=== PATIENT | female | born 1935 | race Caucasian/White ===

== ENCOUNTER 2016-06-11 20:34 | Inpatient (IN) | payer OTHER, MEDICARE ==
[~2016-06-11] VITALS: Ht 167.6 cm; Wt 73.1 kg
[2016-06-11 21:00] LABS: ABSOLUTE BASOPHIL COUNT 0 /CUMM (0.0-0.2); ABSOLUTE EOSINOPHIL COUNT 0 /CUMM (0.0-0.7); ABSOLUTE GRANULOCYTE CT 12.3 /CUMM (1.4-6.5); ABSOLUTE LYMPH COUNT 5.6 /CUMM (1.2-3.4); ABSOLUTE MONOCYTE COUNT 0.7 /CUMM (0.10-0.60); BASOPHIL % 0.2 % (0.0-2.0); EOSINOPHIL % 0.2 % (0-5); GRANULOCYTE % 65.7 % (42.2-75.2); HEMATOCRIT 28.5 % (37-47); MEAN CORPUSCULAR HGB 27.5 PG (27.0-31.0); MEAN CORPUSCULAR HGB CONC 31.1 G/DL (33.0-37.0); MEAN CORPUSCULAR VOLUME 88.5 FL (81.0-99.0); MEAN PLATELET VOLUME 9.5 FL (7.4-10.4); PLATELET COUNT 255 /CUMM (130-400); RBC DISTRIBUTION WIDTH 15.4 % (11.5-14.5); RED BLOOD CELL CT 3.22 /CUMM (4.20-5.40); WHITE BLOOD CELL COUNT 18.7 /CUMM (4.8-10.8)
--- NOTE | 2016-06-11 21:39 | ED CRITICAL CARE ---
See Addendum History of Present Illness General Chief Complaint: Cardiopulmonary Resuscitation Stated Complaint: CPR Source: family, EMS Exam Limitations: unable to give history, clinical condition Vital Signs & Intake/Output Vital Signs & Intake/Output Vital Signs Date Time Temp Pulse Resp B/P Pulse O2 O2 Flow FiO2 Ox Delivery Rate 06/13 1921 65 06/13 1625 55 06/13 1617 98.4 81 16 100/44 91 Ventilator 55% 06/13 1600 91 Ventilator 55% 06/13 1435 50 06/13 1200 92 Ventilator 50% 06/13 1115 50 ED Intake and Output 06/14 0000 06/13 1200 Intake Total 3680 2269 Output Total 172 260 Balance 3508 2008 Intake, IV 3620 2269 Intake, Other 60 Number 0 0 Bowel Movements Output, 50 75 Gastric Drainage Output, Urine 122 185 Patient 161 lb Weight Allergies Coded Allergies: No Known Allergies (06/12/16) Reconcile Medications Amlodipine Besylate 10 MG TABLET 10 MG PO DAILY HTN (Reported) Calcitriol 0.25 MCG CAPSULE 0.25 MCG PO DAILY BONE HEALTH (Reported) Carvedilol 25 MG TABLET 25 MG PO BID HTN (Reported) Colchicine 0.6 MG TABLET 0.6 MG PO DAILY GOUT (Reported) Duloxetine HCl 30 MG CAPSULE.DR 30 MG PO DAILY MENTAL HEALTH (Reported) Hydralazine HCl 50 MG TABLET 50 MG PO BID HTN (Reported) Irbesartan/Hydrochlorothiazide (Irbesartan-Hctz 300-12.5 MG Tb) 300 MG-12.5 MG TABLET 12.5 MG PO DAILY HTN (Reported) Lovastatin 40 MG TABLET 40 MG PO DAILY CHOLESTEROL (Reported) Pregabalin (Lyrica) 25 MG CAPSULE 25 MG PO DAILY DM (Reported) Triage Note: PT BIBA S/P CARDIAC ARREST. CPR INITIATED BY EMS, PT INTUBATED 7.5 ET TUBE, BVM MAINTAINED. #20 IN [facility], 5 EPI'S GIVEN BY EMS. PER EMS PT WAS FEELING WEAK AND GENERALIZED BODY PAIN. PT WAS AT FAMILY'S HOUSE, WENT TO GO HAVE A BM AND WAS FOUND UNRESPONSIVE BY FAMILY. PER EMS PT REMAINED IN [place] UPON ARRIVAL TO ED. BG BY EMS = 561. Triage Nurses Notes Reviewed? yes HPI: Patient presents in full CPR status post endotracheal intubation. According to EMS the patient was sitting on the toilet when she became unresponsive. She had been feeling well during the day. When paramedics arrived she was in cardiac arrest and CPR was initiated followed by endotracheal intubation. Patient received 5 AMPS of epinephrine intravenously and chest compressions were performed with The mechanical CPR machine. Past History Travel History Traveled to [place] past 21 day No Medical History Any Pertinent Medical History? see below for history (pt unable to provide) Surgical History Surgical History: unobtainable Family History Hx Contributory? No (unobtainable) Review of Systems Review of Systems Constitutional: Reports: see HPI. Comments pt unable to provide ros Physical Exam Physical Exam General Appearance: see below Comments: Gen.: Well-nourished, well-developed, intubated Head: Normocephalic, atraumatic. Eyes: Pupils fixed and dilated Ears: Normal inspection bilaterally Nose: Normal inspection Throat/mouth : Moist mucosa Neck: No apparent trauma Heart: Unable to auscultate heart tones Lungs: Clear to auscultation bilaterally with normal air entry with mechanical ventilations Chest: CPR machine in place, chest compressions in progress Abdomen: Soft, nondistended Extremities: No spontaneous movements, no palpable pulses except with chest compressions Neurologic: Unable to assess Skin: Cool Psychiatric: Unable to assess Core Measures ACS in differential dx? Yes CVA/TIA Diagnosis: No Severe Sepsis Present: No Septic Shock Present: No Progress Differential Diagnoses I considered the following diagnoses in my evaluation of the patient: Myocardial infarction, dysrhythmia, metabolic derangement, respiratory arrest Plan of Care: Orders Procedure Date/time Status EXTUBATE 06/13 2100 Complete VENTILATOR PARAMETERS 06/13 1934 Complete VENTILATOR PARAMETERS 06/13 1650 Complete VENTILATOR PARAMETERS 06/13 1450 Complete Kirby, Insertion/Removal/Asses 06/13 1058 Complete VENTILATOR PARAMETERS 06/13 0845 Complete PARTIAL THROMBOPLASTIN TIME 06/13 0832 Complete PROTHROMBIN TIME 06/13 0832 Complete FIBRIN SPLIT PRODUCTS 06/13 0832 Complete FIBRINOGEN LEVEL 06/13 0832 Complete D-DIMER 06/13 0832 Complete OXYGEN SETUP CHG 06/12 UNK Complete OXYGEN 06/12 UNK Complete OXYGEN TRANSPORT 06/12 UNK Complete CONTINUOUS VENTILATOR 06/12 UNK Complete AIRWAY MANAGEMENT EXTEND CARE 06/12 UNK Complete Laboratory Tests 06/14/16 0500: Sodium Cancelled, Potassium Cancelled, Chloride Cancelled, Carbon Dioxide Cancelled, Anion Gap Cancelled, BUN Cancelled, Creatinine Cancelled, Glucose Cancelled, Calcium Cancelled, Phosphorus Cancelled, Magnesium Cancelled, Total Bilirubin Cancelled, AST Cancelled, ALT Cancelled, Albumin Cancelled, CBC w Diff Cancelled, WBC Cancelled, RBC Cancelled, Hgb Cancelled, Hct Cancelled, MCV Cancelled, MCH Cancelled, RDW Cancelled, Plt Count Cancelled, MPV Cancelled, PUBS MCHC Cancelled 06/13/16 0850: PT 14.8 H, INR 1.41 H, APTT 38 H, Fibrinogen Activity 507 H, Fibrin Degrad Products > 40 ug/ml H, D-Dimer > 5250 H Diagnostic Imaging: Discussed w/RAD: Radiology Read. CXR Impression: ett tube at arron Initial ED EKG: unclear rhythm, profound bradycardia with a heart rate in the 20s. Likely high AV mike rhythm. No peaked T waves. Comments: 06/11/2016 9:43:36 PM patient's case discussed with both Dr. Coy and Dr. BURKETT. She is now tenuously stable on a dopamine drip and a transcutaneous pacer. She has a 99% oxygen saturation on room air and a paced rhythm with easily palpable femoral pulses. Her extremities are warm and appear to be well perfused at this time. However she still was no spontaneous respirations spontaneous movements or corneal reflexes. We will initiate cooling measures. Given her elevated potassium, she is being given insulin and calcium gluconate. Family has been updated and are at the bedside. Patient's prognosis is grave at this point. 06/11/2016 9:48:02 PM according to the radiologist the patient's endotracheal tube is at the marli. Recommends withdrawal of the tube 2-3 cm. 06/11/2016 10:32:58 PM hospitalist at the bedside. We have taken the patient off the pacer with no deterioration in steady and easily palpable femoral pulses. Departure Departure Disposition: STILL A PATIENT Condition: Critical Clinical Impression Primary Impression: Cardiac arrest Secondary Impressions: Acute kidney injury Anemia Qualifiers: Anemia type: unspecified type Qualified Code: D64.9 - Anemia, unspecified Bradycardia Encounter for central line placement Endotracheally intubated Hyperkalemia Hypotension Qualifiers: Hypotension type: other hypotension type Qualified Code: I95.89 - Other hypotension Leukocytosis Qualifiers: Leukocytosis type: unspecified Qualified Code: D72.829 - Elevated white blood cell count, unspecified Respiratory arrest Referrals: ADI GERARDO MD (PCP/Family) Departure Forms: General Discharge Information Admission Note Spoke With: KIT BURKETT MD Documentation of Exam: Documentation of any treatments & extenuating circumstances including Concerns Regarding Discharge (functional status, medication knowledge or non-compliance, living conditions, etc.) that warrant an admission rather than observation: Patient is critically ill requiring mechanical ventilation and IV dopamine and transcutaneous pacing to maintain her cardiovascular stability. She is also hyperkalemic and acidotic and will require monitoring of her heart rhythm, repeated chemistries to monitor acidosis and potassium level and cardiology consultation. Cooling measures should be initiated to preserve cerebral function. This patient is critically ill and requires ICU level care. Her prognosis is grave. Critical Care Note Critical Care Note Critical Care Time: 75-104 min Critical Care Time: 75-104 min
--- NOTE | 2016-06-11 21:51 | RADIOLOGY REPORT ---
EXAMINATION: XR PORTABLE CHEST CLINICAL INFORMATION: CHF. Effusion. CMG. Endotracheal tube placement. Cardiac arrest. COMPARISON: None TECHNIQUE: AP supine portable view of the chest was obtained. 9:25 PM FINDINGS: Endotracheal tube tip is just above the marli. Catheter could be pulled back about 4 cm. There is central pulmonary vascular congestion with bilateral perihilar airspace disease of pulmonary edema. Heart size is enlarged. No pneumothorax. IMPRESSION: Endotracheal tube tip just above the marli. Catheter could be pulled back about 4 cm. Pulmonary edema. This critical result was discussed with Dr. Monet on 06/11/2016, 9:50 PM and it was ascertained that the content and urgency of the report was understood at the time of direct communication.
--- NOTE | 2016-06-11 23:08 | History & Physical ---
THEA ZUNIGA 06/11/16 2307: General Information and HPI MD Statement: I have seen and personally examined JACQUELINE KENNEDY and documented this H&P. The patient is a 81 year old F who presented with a patient stated chief complaint of [cardiac arrest]. Source of Information: family, EMS Exam Limitations: unable to give history History of Present Illness: This is a 81-year-old woman with past medical history of diabetes mellitus, hyperlipidemia, hypertension, chronic kidney disease, gout, neuropathy, questionable congestive heart failure. Presented to the emergency department status post cardiac arrest at home tonight. According to her daughter she stated that her mother report that she had postnasal drip and she feels tired and complaining of wheezing for the past couple of days. She stated that today she started to complain of chest tightness that is associated with shortness of breath and cough with small amount of phlegm and she felt feverish her temperature at home was 99.0. Also she report that her mother was complaining cough not eating right and the last hour status post the event. The daughter stated that her last Accu-Chek today was 230. The daughter stated that she contact the mass prior to the cardiac arrest because she suspected her mother had the pneumonia as she was complaining cough feeling tired and had difficulty breathing with wheezing, she stated as her mother went to the bathroom for change prior to arrival of EMS her mother was fully responsive, and suddenly she become unresponsive and her skin color to them to be riojas in color she stated that during this time the EMS was in the driveway and directly CPR was initiated followed by endotracheal intubation, according to the EMS 5 g of epinephrine was given. also she report that her mother vomited and the EMS done suction for her. ((PER EMS PT REMAINED IN [place] UPON ARRIVAL TO ED)). Patient arrived to the ED around 8:30 PM. In the ED patient received additional 6 amps of epinephrine, with 2 L of normal saline bolus, patient was intubated and was started on dopamine and was placed on pacing due to low blood pressure and bradycardia,Levophed double concentration was started, also she received 50 mEq of sodium bicarbonate. Initial labs showed hyperkalemia of 7.7 with low bicarbonate of 9 with elevated creatinine with BUN 2.6/45 respectively patient received calcium gluconate, 10 units of regular insulin. Initial CBC showed leukocytosis without band. Patient blood pressure and heart rate improved and the pacer was taken off. repated EKG showed HR 80, MI 176, [id number], LBBB with LVH. Repeated labs showed potassium of 6.5 another round of insulin and calcium gluconate with D5 normal saline was given. Folye catheter and right femoral central line was placed in the ED. Allergies/Medications Home Med list Amlodipine Besylate 10 MG TABLET 10 MG PO DAILY HTN (Reported) Calcitriol 0.25 MCG CAPSULE 0.25 MCG PO DAILY BONE HEALTH (Reported) Carvedilol 25 MG TABLET 25 MG PO BID HTN (Reported) Colchicine 0.6 MG TABLET 0.6 MG PO DAILY GOUT (Reported) Duloxetine HCl 30 MG CAPSULE.DR 30 MG PO DAILY MENTAL HEALTH (Reported) Hydralazine HCl 50 MG TABLET 50 MG PO BID HTN (Reported) Irbesartan/Hydrochlorothiazide (Irbesartan-Hctz 300-12.5 MG Tb) 300 MG-12.5 MG TABLET 12.5 MG PO DAILY HTN (Reported) Lovastatin 40 MG TABLET 40 MG PO DAILY CHOLESTEROL (Reported) Pregabalin (Lyrica) 25 MG CAPSULE 25 MG PO DAILY DM (Reported) Past History Travel History Traveled to [place] past 21 day No Medical History Cardiovascular: hypertension, hyperlipidemia Renal: chronic kidney disease Musculoskeletal: gout Endocrine: diabetes Surgical History Surgical History: unobtainable Past Family/Social History Psychosocial History Smoking Status: Never Smoked ETOH Use: denies use Illicit Drug Use: denies illicit drug use Functional Ability ADLs Independent: dressing, eating, toileting, bathing. Ambulation: independent IADLs Independent: shopping, housework, finances, food prep, telephone, transportation , medication admin. Review of Systems Review of Systems Constitutional: Reports: see HPI. Cardiovascular: Reports: see HPI. Respiratory: Reports: see HPI. GI: Reports: see HPI. Genitourinary: Reports: see HPI. Neurological/Psychological: Reports: see HPI. Exam & Diagnostic Data Last 24 Hrs of Vital Signs/I&O Vital Signs Date Time Temp Pulse Resp B/P Pulse O2 O2 Flow FiO2 Ox Delivery Rate 06/11 2336 88 20 78/40 98 Ventilator 100% 06/11 2329 100 06/11 2252 52/38 06/118 58/30 06/110 78 20 5830 03/14 2218 Ventilator 06/11 2213 95.0 80 98 Ventilator 06/11 2211 78 58/30 06/11 2200 54 20 38/0 99 Ventilator 06/11 2135 60 20 72/38 100 Ventilator 06/114 82/46 06/11 2101 100 06/11 2100 56/42 06/11 2049 50 20 74/40 06/118 72/40 06/11 2038 92/40 Intake & Output 06/12 0800 06/12 0000 06/11 1600 Intake Total 2000 Output Total Balance 2000 Intake, IV 2000 Patient 140 lb Weight Physical Exam General Appearance intubated HEENT fixed and dilated pupils bilateral Neck intubated Cardiovascular Regular Rate, Normal S1, Normal S2 Lungs intubated, findings crackles, wheezing Abdomen Soft, No Masses, distended Extremities trace bilateral edema Last 24 Hrs of Labs/Elliott: Laboratory Tests 06/11/162302: Anion Gap 15, Estimated GFR 19 L, Glucose 178 H, Calcium 8.6, Phosphorus 8.7 H, Magnesium 2.5 H, Total Bilirubin 0.6, AST 235 H, ALT 141 H, Albumin 2.8 L , PT 11.2, INR 1.07, APTT 33 06/11/162204: pH 7.23 *L, pCO2 26 L, pO2 99, HCO3 11 L, ABG O2 Sat (Measured) 96.0, P-50 ( Temp Corrected) N, Carboxyhemoglobin 0.4 L, O2 Concentration % 100%, Respiration Rate 20, O2 Delivery Method VENT, Vent Mode AC, Expiratory Pressure 5, Tidal Volume 500, Pressure Support 0, Phlebotomy Draw Site RIGHT BRACHIAL 06/11/162051: Anion Gap 21 H, Estimated GFR 18 L, BUN/Creatinine Ratio 17.3, Glucose 312 H, Calcium 9.2, Magnesium 2.8 H, Troponin I 0.04, CBC w Diff MAN DIFF ORDERED, RBC 3.22 L, MCV 88.5, MCH 27.5, RDW 15.4 H, MPV 9.5, Gran % 65.7, Lymphocytes % 30.1, Monocytes % 3.8, Eosinophils % 0.2, Basophils % 0.2, Absolute Granulocytes 12.3 H, Segmented Neutrophils 51, Band Neutrophils 1, Absolute Lymphocytes 5.6 H, Lymphocytes 44, Monocytes 4, Absolute Monocytes 0.7 H, Absolute Eosinophils 0, Absolute Basophils 0, Platelet Estimate ADEQUATE, Normocytic RBCs VERIFIED, Normochromic RBCs VERIFIED, PUBS MCHC 31.1 L Microbiology 06/11 2348 UPPER RESP: Surveillance Culture - ORD 06/11 2348 GI: Surveillance Culture - ORD 06/11 2252 URINE ROUT: Urine Culture - ORD 06/11 2252 BLOOD: Blood Culture - COLB 06/11 2252 BLOOD: Blood Culture - COLB 06/11 2122 STOOL: Stool Culture - ORD Diagnostic Data EKG Results see HPI CXR Results EXAM TYPE: RAD - XRY-PORTABLE CHEST XRAY EXAMINATION: XR PORTABLE CHEST CLINICAL INFORMATION: CHF. Effusion. CMG. Endotracheal tube placement. Cardiac arrest. COMPARISON: None TECHNIQUE: AP supine portable view of the chest was obtained. 9:25 PM FINDINGS: Endotracheal tube tip is just above the marli. Catheter could be pulled back about 4 cm. There is central pulmonary vascular congestion with bilateral perihilar airspace disease of pulmonary edema. Heart size is enlarged. No pneumothorax. IMPRESSION: Endotracheal tube tip just above the marli. Catheter could be pulled back about 4 cm. Pulmonary edema. Assessment/Plan Assessment: This is a 81-year-old woman with past medical history of diabetes mellitus, hyperlipidemia, hypertension, chronic kidney disease, gout, neuropathy, questionable congestive heart failure. Presented to the emergency department status post cardiac arrest at home tonight. Problem list: -Cardiogenic Shock due to Metabolic acidosis. VS septic shock. -Anoxic brain injury S/p CPR. -Acute respiratory failure -Acute on chronic kidney injury -Anion gap Metabolic acidosis with Hyperkalemia and hyperglycemia -Transaminitis secondary to Shock liver due to low BP -Leukocytosis that could be due to aspiration versus s/p CPR -Questionable congestive heart failure as the patient had pulmonary edema. Plan: -Admit patient to the critical care unit -Vitals every shift, strict KT's -Head CT scan was done showed Anoxic brain injury. -Start the patient on IV Unasyn, panculture -Keep MAP above 65, CVP between 8-12 -Continue dopamine and Levophed, will add Neosynephrine if needed -Start the patient on hypothermia protocol -Serial troponin and EKG, echocardiogram -patient will receive additional 10 units of regular insulin and calcium gluconate, recheck ICU bundle at 1:30 AM. D5 normal saline at 200 mL per hour. -OG-tube to be placed, will give the patient Kayexalate -IV Protonix for GI prophylaxis -Check lactic acid -Repeat ABG at midnight adjustment Vent as needed -Critical care consultation, nephrology consultation, cardiology consultation. -CBC and ICU bundle along with chest x-ray to be done in the morning for evaluation. -Nothing by mouth with NPO sliding scale -DVT prophylaxis: Subcutaneous heparin -After discussion with the family, patient will be Full code for now. As Ranked By This Provider Problem List: 1. Cardiac arrest 2. Hyperkalemia 3. Acute kidney injury 4. Hypotension Qualifiers Hypotension type: other hypotension type Qualified Code: I95.89 - Other hypotension 5. Bradycardia 6. Leukocytosis Qualifiers Leukocytosis type: unspecified Qualified Code: D72.829 - Elevated white blood cell count, unspecified 7. Anemia Qualifiers Anemia type: unspecified type Qualified Code: D64.9 - Anemia, unspecified Core Measures/Miscellaneous Acute Coronary Syndrome ACS Diagnosis: No Cerebrovascular Accident CVA/TIA Diagnosis: No Congestive Heart Failure CHF Diagnosis: No Venous Thromboembolism VTE Risk Factors: Acute medical illness, Age > 40, CHF or Resp failure, Obesity No [facility] VTE prophylaxis d/t: No contraindications No VTE Pharm Prophylaxis d/t: No contraindications VTE Diagnosis: No VTE Type: NONE VTE Confirmed by (Test): NONE Severe Sepsis Severe Sepsis Present: No Septic Shock Septic Shock Present: Yes BC x2: Yes Lactic Acid: Yes IV ABX Broad Spectrum: Yes Focused Exam Completed: Yes NS/LR 30ml/kg w/in 3hrs: Yes IV Vasopressors started: Yes Miscellaneous Documentation Attending Case Discussed With: KIT BURKETT MD Primary Care Physician: ADI GERARDO MD Patient sees these Specialists Nephro, critical care Level of Patient Care: Critical Care (CRI) Resident Review Statement Resident Statement: examined this patient KIT BURKETT 06/12/16 0336: Attending MD Review Statement Attending Statement Attending MD Statement: examined this patient, discuss w/resident/PA/HEALTHCARE EDUCATOR, agreed w/resident/PA/HEALTHCARE EDUCATOR, discussed with family, reviewed EMR data (avail), reviewed images, amended to note Attending Assessment/Plan: CC: Cardiopulmonary arrest PMH : DM insulin-dependent, HTN, renal insufficiency, neuropathy, HLD, gout History obtain from patient's daughter, patient was brought in ER through EMS after cardiopulmonary arrest, intubated at site, received total of 11 mg epinephrine, atropine currently on external pacemaker, on ventilator, on dopamine drip. Patient was visiting her daughter, drove from [place] yesterday , she was feeling tired and lethargic the whole week, some postnasal drip. Patient is complaining of some respiratory distress, daughter could hear audible wheezes, she thought patient had pneumonia so called EMS. By the time EMS arrived in their driveway, patient had collapsed to bathroom and agonal breathing followed by no breathing, resuscitation was started and patient was intubated. Patient was complaining of some chest discomfort earlier in the afternoon, no productive cough, no fevers or chills, no nausea vomiting diarrhea , no palpitations as reported by daughter. Vitals: Initial vitals were not recorded in ER, blood pressure was 50 over Doppler with dopamine drip, which was titrated up and Levophed was started, patient's heart rate was paced at 60, eventually blood pressure improved to 80/ 46, heart rate improved to 80s, pacer was discontinued, Levophed was titrated up. On exam: Patient intubated, without sedation, pupils dilated, not reactive to light, Not responding to pain stimuli, neck supple, no JVD, S1-S2, RRR, bilateral breath sounds. Abdomen soft, NT, and a bowel sounds present, no dependent edema. Labs: WBC 10.7, hemoglobin 8.9, sodium 143, potassium 7.7, creatinine 2.6, glucose 312, bicarbonate 9, anion gap 21, magnesium 2.8, proBNP 14,000, AST 235, AST 141, bilirubin 0.6, phosphorus 8.7, AB.23/26/99/11 on 100% AC 500/20/5 CXR:Endotracheal tube tip just above the marli. Catheter could be pulled back about 4 cm. Pulmonary edema. Assessment - s/p cardiopulmonary arrest: Unclear etiology, ? Flash pulmonary edema, ? TANNER with severe acidosis, ? Hyperkalemia - Acute hypoxic respiratory failure - Shock - Bradycardia - TANNER - Metabolic acidosis - Hyperkalemia - coma - Transaminitis - Leukocytosis - Pulmonary edema - Insulin-dependent diabetes - History of hypertension Plan - Continue current vent settings 100% AC 500/20/5, repeat ABG in 2 hour, titrate down FiO2 - If patient is persistently acidotic, with pH less than 7.1, may need bicarbonate drip - Elevate head end, IV Protonix 40 mg daily, heparin for DVT prophylaxis, Kiryb catheter - Continue dopamine, Levophed, titrate to map more than 60, add Devin-Synephrine if required third pressors, need to discuss with family about goals before starting toward pressor - Currently not sedated - Continue IV hydration with 150 per hour - Trend troponin, serial EKG - Blood culture, sputum culture, flu test if not done - IV Unasyn - OG tube - Kayexalate through NG, Calcium gluconate, insulin, for hyperkalemia - Hypothermia protocol - I's and O's - 2-D echo in a.m. - CT head - Critical care consult, cardiology consult, nephrology consult - Trend lactate - Nothing by mouth, low-dose sliding scale short-acting insulin Critical condition, Prognosis and updates discussed with family at length. They intend to continue current measures, aggressive treatment, and full code. TTS 60 min
[2016-06-11 23:22] LABS: PT 11.2 SEC (9.4-12.5); PTT 33 SEC (25-37)
[2016-06-11] MEDS ORDERED: COLCHICINE0.6 M2 PO (23:23)
[2016-06-11] MEDS ORDERED: HYDRALAZINE HCL50 M1 PO (23:23)
[2016-06-11] MEDS ORDERED: LYRICA25 M1 PO (23:24)
[2016-06-11] MEDS ORDERED: IRBESARTAN-HCT1 EAC1 PO (23:24)
[2016-06-11] MEDS ORDERED: DULOXETINE HCL30 MG PO (23:25)
[2016-06-11] MEDS ORDERED: CALCITRIOL0.25 MC1 PO (23:26)
[2016-06-11] MEDS ORDERED: AMLODIPINE BESY10 M1 PO (23:26)
[2016-06-11] MEDS ORDERED: LOVASTATIN40 M1 PO (23:27)
[2016-06-11] MEDS ORDERED: CARVEDILOL25 M1 PO (23:27)
--- NOTE | 2016-06-12 00:37 | RADIOLOGY REPORT ---
EXAMINATION: XR PORTABLE CHEST CLINICAL INFORMATION: Intubated, follow-up. COMPARISON: 06/11/2016 TECHNIQUE: Portable AP view of the chest was obtained. FINDINGS: The endotracheal tube position is unchanged, at the level of the marli, extending to the right mainstem bronchus. Cardiac leads overlie the chest. The lungs are well expanded. Persistent bilateral perihilar opacities. No pneumothorax. Suspect small left pleural effusion. The cardiomediastinal silhouette is unchanged. IMPRESSION: Endotracheal tube remains at the level of the marli, extending to the right mainstem bronchus. Recommend repositioning. Persistent perihilar opacities suggestive of edema. This is similar to previous. This critical result was discussed with Dr. Frank by telephone at 06/12/2016 12:26 AM and it was ascertained that the content and urgency of the report was understood at the time of direct communication.
--- NOTE | 2016-06-12 00:57 | CT SCAN REPORT ---
EXAMINATION: CT HEAD WITHOUT CONTRAST CLINICAL INFORMATION: Status post CPR. On ventilator. COMPARISON: None TECHNIQUE: Contiguous axial imaging was performed from the skull base to vertex without intravenous administration of contrast. DLP: 529 mGy-cm FINDINGS: There is diffuse loss of riojas to white matter differentiation. The basal ganglia are difficult to distinguish. Although no prior study is available for comparison, there is suggestion of diffuse cerebral edema with mild sulcal effacement. No evidence of herniation at this time. There is no evidence of acute intracranial hemorrhage. No midline shift is seen. No extra-axial fluid collections are identified. No acute osseous or soft tissue abnormality. The paranasal sinuses are diffusely opacified. The mastoid air cells are well-aerated. IMPRESSION: Diffuse loss of riojas-white matter differentiation most consistent with a diffuse anoxic injury. This critical result was discussed with Dr. Frank by telephone at 06/12/2016 12:32 AM and it was ascertained that the content and urgency of the report was understood at the time of direct communication.
--- NOTE | 2016-06-12 02:26 | RADIOLOGY REPORT ---
EXAMINATION: XR PORTABLE CHEST CLINICAL INFORMATION: Intubated COMPARISON: 06/11/2016 TECHNIQUE: Portable AP view of the chest was obtained. FINDINGS: The endotracheal tube terminates 4 cm above the marli. The enteric tube extends into the stomach. Multiple cardiac leads overlie the chest. The lungs are well expanded. Perihilar opacities are again seen bilaterally with left basilar opacity and small pleural effusion. No pneumothorax. The cardiomediastinal silhouette is unchanged. IMPRESSION: Partial retraction of the endotracheal tube now terminating 4 cm above the marli. No significant change in bilateral perihilar opacities with small left pleural effusion and retrocardiac opacity.
--- NOTE | 2016-06-12 03:38 | Admission Certification ---
Admission Certification Certification Statement - As attending physician, I certify that at the time of - admission, based on clinical presentation, severity of - symptoms, need for further diagnostic testing and - therapeutic interventions, and risk of adverse outcomes - without in-hospital treatment, in my clinical assessment, - this patient requires an acute hospital stay for a minimum - of two nights or longer. I have also considered psychsocial - factors such as support system, advanced age, financial - issues, cognitive issues, and failed out-patient treatments, - past re-admission history, safety of patient, and lack of - compliance as applicable. Specific rationale supporting this admission is: SP cardiopulmonary arrest, respiratory failure, shock
[2016-06-12 04:20] LABS: ABSOLUTE BASOPHIL COUNT 0 /CUMM (0.0-0.2); ABSOLUTE EOSINOPHIL COUNT 0 /CUMM (0.0-0.7); ABSOLUTE GRANULOCYTE CT 12.8 /CUMM (1.4-6.5); ABSOLUTE MONOCYTE COUNT 0.3 /CUMM (0.10-0.60); BASOPHIL % 0.2 % (0.0-2.0); EOSINOPHIL % 0 % (0-5); GRANULOCYTE % 84.5 % (42.2-75.2); HEMATOCRIT 28.1 % (37-47); MEAN CORPUSCULAR HGB 28.1 PG (27.0-31.0); MEAN CORPUSCULAR HGB CONC 32.9 G/DL (33.0-37.0); MEAN CORPUSCULAR VOLUME 85.5 FL (81.0-99.0); MEAN PLATELET VOLUME 8.8 FL (7.4-10.4); PLATELET COUNT 209 /CUMM (130-400); RBC DISTRIBUTION WIDTH 15.2 % (11.5-14.5); RED BLOOD CELL CT 3.29 /CUMM (4.20-5.40); WHITE BLOOD CELL COUNT 15.1 /CUMM (4.8-10.8)
--- NOTE | 2016-06-12 07:14 | Cons- CRCU ---
HEATH TAVAREZ MD 06/12/16 0713: General Information and HPI Consulting Request Date of Consult: 06/12/16 Requested By: Dr. Frank Reason for Consult: Cardiac arrest Source of Information: History and physical Exam Limitations: unable to give history History of Present Illness: History cannot be obtained from patient at this time. As per H&P, pt had cardiac arrest at home and received a total of 11mg of epinephrine, intubated on the field. She was thought to be in cardiogenic shock with low heart rate and blood pressure, for which dopamine was started. She is currently on 20 of dopamine and 11 of levophed, with last BP 103/51. She is mechanically ventilated with AC/16/60%/5. ABG initially 7.23/26/99/11, last ABG 7.4///97%. She currently on hypothermia protocol. CT head showed anoxic brain injury, with her eyes dilated and nonreactive on my examination this morning. Her labs were abnormal for hyperkalemia (was 7.7, given calcium gluconate, insulin, dextrose, now K normal). Leukocytosis WBC 18.7 with bands, started on IV unasyn for possible aspiration PNA. Glucose in the 300s, on NPO sliding scale. Hemoglobin 8.9, bicarbonate 9, anion gap 21, magnesium 2.8, proBNP 14,000, AST 235, AST 141, phosphorus 8.7 BUN 45 high, creatinine 2.6 high, renal has been called for am consult. Dr. Coy has been notified to see her in the morning. Allergies/Medications Home Med List: Amlodipine Besylate 10 MG TABLET 10 MG PO DAILY HTN (Reported) Calcitriol 0.25 MCG CAPSULE 0.25 MCG PO DAILY BONE HEALTH (Reported) Carvedilol 25 MG TABLET 25 MG PO BID HTN (Reported) Colchicine 0.6 MG TABLET 0.6 MG PO DAILY GOUT (Reported) Duloxetine HCl 30 MG CAPSULE.DR 30 MG PO DAILY MENTAL HEALTH (Reported) Hydralazine HCl 50 MG TABLET 50 MG PO BID HTN (Reported) Irbesartan/Hydrochlorothiazide (Irbesartan-Hctz 300-12.5 MG Tb) 300 MG-12.5 MG TABLET 12.5 MG PO DAILY HTN (Reported) Lovastatin 40 MG TABLET 40 MG PO DAILY CHOLESTEROL (Reported) Pregabalin (Lyrica) 25 MG CAPSULE 25 MG PO DAILY DM (Reported) Review of Systems Review of Systems Constitutional: Reports: see HPI. Past History Travel History Traveled to [place] past 21 day No Medical History Blood Transfusion Hx: No Cardiovascular: hypertension, hyperlipidemia Renal: chronic kidney disease Musculoskeletal: gout Endocrine: diabetes Surgical History Surgical History: unobtainable Psychosocial History Where Do You Live? Home Smoking Status: Never Smoked ETOH Use: denies use Illicit Drug Use: denies illicit drug use Functional Ability ADLs Independent: dressing, eating, toileting, bathing. Ambulation: independent IADLs Independent: shopping, housework, finances, food prep, telephone, transportation , medication admin. Exam & Diagnostic Data Last 24 Hrs of Vital Signs/I&O Vital Signs Date Time Temp Pulse Resp B/P Pulse O2 O2 Flow FiO2 Ox Delivery Rate 06/12 0816 79 104/53 06/12 0750 60 06/12 0632 80 114/51 06/12 0533 60 06/12 0400 97 Ventilator 60% 06/12 0311 60 06/12 0305 80 06/12 0220 99 Ventilator 80% 06/12 0147 80 06/12 0039 100 06/11 2337 88 20 78/40 98 Ventilator 100% 06/11 2330 100 06/11 2252 52/38 14 2238 58/30 06/11 2220 78 20 58/30 14 2218 Ventilator 06/11 2214 95.0 80 98 Ventilator 06/11 2211 78 58/30 14 2200 54 20 38/0 99 Ventilator 06/11 2135 60 20 72/38 100 Ventilator 06/11 2124 82/46 06/11 2101 100 14 2100 56/42 14 2050 50 20 74/40 14 2048 72/40 /14 2038 92/40 Intake & Output 06/12 1600 06/12 0800 06/12 0000 Intake Total 2000 Output Total Balance 2000 Intake, IV 2000 Patient 70 kg 63.503 kg Weight Physical Exam General Appearance: intubated Respiratory: normal breath sounds Cardiovascular: regular rate/rhythm Neurologic/Psych: both eyes dilated and nonreactive to light Last 48 Hrs of Labs/Elliott: Laboratory Tests 06/12/16 0800: Troponin I Pending 06/12/16 0800: Lactic Acid Pending 06/12/16 0510: pH 7.40, pCO2 20 L, pO2 74 L, HCO3 13 L, ABG O2 Sat (Measured) 97.0, P-50 ( Temp Corrected) Y, Carboxyhemoglobin 0.3 L, O2 Concentration % 60%, Temperature 88.0 L, Respiration Rate 16, O2 Delivery Method ESPRIT, Vent Mode AC, Expiratory Pressure 5, Tidal Volume 500, Phlebotomy Draw Site RIGHT RADIAL 06/12/16 0400: Lactic Acid 3.7 H 06/12/16 0400: Anion Gap 15, Estimated GFR 18 L, Glucose 370 H, Calcium 8.1 L, Phosphorus 3.9, Magnesium 2.2, Total Bilirubin 0.7, AST 267 H, ALT 144 H, Albumin 2.4 L, CBC w Diff MAN DIFF ORDERED, RBC 3.29 L, MCV 85.5, MCH 28.1, RDW 15.2 H, MPV 8.8, Gran % 84.5 H, Lymphocytes % 13.3 L, Monocytes % 2.0, Eosinophils % 0, Basophils % 0.2, Absolute Granulocytes 12.8 H, Segmented Neutrophils 71, Band Neutrophils 11 H, Absolute Lymphocytes 2.0, Lymphocytes 13 L, Monocytes 4, Absolute Monocytes 0.3, Absolute Eosinophils 0, Absolute Basophils 0, Metamyelocytes 1, Platelet Estimate ADEQUATE, Normocytic RBCs VERIFIED, Hypochromic-Microcytic 1+, PUBS MCHC 32.9 L, Fld Total RBCs Counted 100 06/12/16 0209: Lactic Acid 3.2 H 06/12/16 0125: pH 7.47 H, pCO2 17 L, pO2 235 H, HCO3 12 L, ABG O2 Sat (Measured) 98.0, P-50 (Temp Corrected) Y, Carboxyhemoglobin 0.3 L, O2 Concentration % 100%, Temperature 90.9 L, Respiration Rate 20, O2 Delivery Method ESPRIT, Vent Mode AC, Expiratory Pressure 5, Tidal Volume 500, Phlebotomy Draw Site RIGHT RADIAL 06/12/16 0100: Urine Color YEL, Urine Clarity CLEAR, Urine pH 6.0, Ur Specific [place] 1.020, Urine Protein 100 H, Urine Ketones NEG, Urine Nitrite NEG, Urine Bilirubin NEG, Urine Urobilinogen 0.2, Ur Leukocyte Esterase NEG, Ur Microscopic SEDIMENT EXAMINED, Ur Epithelial Cells RARE, Urine Bacteria RARE H, Micro UA Comment NEGATIVE MICROSCOPIC, Urine Hemoglobin NEG, Urine Glucose 250 H 06/12/16 0050: Anion Gap 15, Estimated GFR 19 L, Glucose 177 H, Calcium 8.4, Phosphorus 7.0 H, Magnesium 2.4 H, Total Bilirubin 0.7, AST 265 H, ALT 141 H, Troponin I 0.23 *H, Albumin 2.7 L 06/11/16 2303: Anion Gap 15, Estimated GFR 19 L, Glucose 178 H, Calcium 8.6, Phosphorus 8.7 H, Magnesium 2.5 H, Total Bilirubin 0.6, AST 235 H, ALT 141 H, Albumin 2.8 L , PT 11.2, INR 1.07, APTT 33 06/11/165: pH 7.23 *L, pCO2 26 L, pO2 99, HCO3 11 L, ABG O2 Sat (Measured) 96.0, P-50 ( Temp Corrected) N, Carboxyhemoglobin 0.4 L, O2 Concentration % 100%, Respiration Rate 20, O2 Delivery Method VENT, Vent Mode AC, Expiratory Pressure 5, Tidal Volume 500, Pressure Support 0, Phlebotomy Draw Site RIGHT BRACHIAL 06/11/162051: Anion Gap 21 H, Estimated GFR 18 L, BUN/Creatinine Ratio 17.3, Glucose 312 H, Calcium 9.2, Magnesium 2.8 H, Troponin I 0.04, Npb-[id number]-Ituijkqxrbi Pept 55848 H, CBC w Diff MAN DIFF ORDERED, RBC 3.22 L, MCV 88.5, MCH 27.5, RDW 15.4 H, MPV 9.5, Gran % 65.7, Lymphocytes % 30.1, Monocytes % 3.8, Eosinophils % 0.2, Basophils % 0.2, Absolute Granulocytes 12.3 H, Segmented Neutrophils 51, Band Neutrophils 1, Absolute Lymphocytes 5.6 H, Lymphocytes 44, Monocytes 4, Absolute Monocytes 0.7 H, Absolute Eosinophils 0, Absolute Basophils 0, Platelet Estimate ADEQUATE, Normocytic RBCs VERIFIED, Normochromic RBCs VERIFIED , PUBS MCHC 31.1 L Microbiology 06/12 414 NASOPHARYN: Influenza Virus A & B Rapid Smear - COMP Diagnostic Data EKG Results EKG showed HR 80, NJ 176, WSd250, LBBB with LVH. CXR Results IMPRESSION: Partial retraction of the endotracheal tube now terminating 4 cm above the marli. No significant change in bilateral perihilar opacities with small left pleural effusion and retrocardiac opacity. CXR from this am: 1. Endotracheal tube has been repositioned, its tip now located 5.3 cm above the marli. 2. Cardiogenic pulmonary edema, small pleural effusions and bibasilar atelectasis are not significantly changed compared to the prior radiograph. Other Results EXAM TYPE: CAT - CT HEAD WO IV CONTRAST EXAMINATION: CT HEAD WITHOUT CONTRAST CLINICAL INFORMATION: Status post CPR. On ventilator. COMPARISON: None TECHNIQUE: Contiguous axial imaging was performed from the skull base to vertex without intravenous administration of contrast. DLP: 529 mGy-cm FINDINGS: There is diffuse loss of riojas to white matter differentiation. The basal ganglia are difficult to distinguish. Although no prior study is available for comparison, there is suggestion of diffuse cerebral edema with mild sulcal effacement. No evidence of herniation at this time. There is no evidence of acute intracranial hemorrhage. No midline shift is seen. No extra-axial fluid collections are identified. No acute osseous or soft tissue abnormality. The paranasal sinuses are diffusely opacified. The mastoid air cells are well-aerated. IMPRESSION: Diffuse loss of riojas-white matter differentiation most consistent with a diffuse anoxic injury. This critical result was discussed with Dr. Frank by telephone at 06/12/2016 12:32 AM and it was ascertained that the content and urgency of the report was understood at the time of direct communication. DICTATED BY: ELAINE DELANEY,DUSTIN DATE/TIME DICTATED:06/12/16 / 0048 Assessment/Plan Impression/Plan: 81-year-old woman with PMH of insulin dependent diabetes mellitus, hyperlipidemia, hypertension, chronic kidney disease, gout, neuropathy, questionable congestive heart failure. Presented to the emergency department status post cardiac arrest at home on 06/11/16. Upon presentation, she was intubated, with low heart rate and blood pressure, thought to be due to cardiogenic shock, requiring pacer (now off) and pressure support dopamine and levophed. CT also revealed anoxic brain injury with dilated pupils that are nonreactive. Family aware that prognosis is guarded but still would like aggressive measures. Currently on hypothermia protocol. There were marked metabolic derangements, including but not limited to; hyperkalemia, hypermagnesiumia, hyperphospatemia, metabolic acidosis, lactic acidosis, TANNER on CKD, transaminitis, leukocytosis, anemia, positive troponin. Will again discuss with family the guarded prognosis and goals of care. Kirby day 2 Mechanically ventilated day 2 OG tube day 2 Central line day 2 Pt admited to ICU with the following problem list: # Acute respiratory failure on mechanical ventilation # Cardiogenic shock sp cardiac arrest # CHF # Anoxic brain injury sp cardiac arrest # TANNER on CKD most likely due to hypotension # Metabolic acidosis # Hyperkalemia (resolved) # Transaminitis most likely due to shock liver # Leukocytosis most likely due to aspiration Respiratory # Acute respiratory failure on mechanical ventilation - ABG initially 7.23//99/11, last ABG 7.4///97%. * She is mechanically ventilated with AC/16/60%/5 * Daily CXR while intubated * ABG at noon Cardiovascular # Cardiogenic shock sp cardiac arrest - As per H&P, pt had cardiac arrest at home and received a total of 11mg of epinephrine, intubated on the field. She was thought to be in cardiogenic shock with low heart rate and blood pressure, for which dopamine was started. * Continue dopamine and levophed to maintain MAP > 65, and CVP 8-12. Consider adding rg. * She currently on hypothermia protocol (06/11 at 120am - 06/12 at 120am) * Serial EKG and trops. trop up to 0.23, trend until down. * Monitor urine output closely * Follow echocardiogram * Appreciate cardiology consult (Dr. Coy) * IV protonix for GI ppx * On D51/2 NS at 150ml/hr --> NS at 50ml/hr # CHF - proBNP 14,000 - CXR shows pulmonary edema Neurology # Anoxic brain injury sp cardiac arrest - CT head showed anoxic brain injury - Unconscious without sedation, no gag reflex, fixed dilated pupil * Determine brain after rewarming Metabolic # TANNER on CKD (diabetic nephropathy) most likely due to hypotension - Her baseline serum creatinine has run between 2.18-2.5 mg/dL. - On admission, BUN 45 high, creatinine 2.6 high * Appreciate renal input * Monitor urine output closely. Currently oligouric with dilute urine. Watch out of polyuria that would suggest herniation due to cerebral ischemia. * Hold off hemodialysis # Metabolic acidosis most likely due to hypotension - AG 21 to 15. * Lactic acid still trending up to 3.7. Follow lactic acid * Continue IVF as above # Hyperkalemia (resolved) - K was 7.7 on admission, given calcium gluconate, insulin, dextrose, now K normal # Transaminitis most likely due to shock liver - AST 235 --> 267 - AST 141 --> 144 # Magnesium 2.8 H --> 2.2 # Phosphorus 8.7 H --> 3.9 Infectious disease # Aspiration PNA? - On admission, leukocytosis with WBC 18.7 with bands, started on IV unasyn for possible aspiration PNA - flu negative * On IV unasyn day # 2 * Follow BC X 2 , Endocrinology # IDDM - Glucose in the 300s - 400s on D5NS * NPO sliding scale. * Change IVF to NS * Consider insulin drip if she has a gap Diet: NPO DVT ppx: alps and heparin FULL CODE Consult Acknowledgment - Thank you for your consult request. LUCÍA DELANEY,Mar ALLEN 06/12/16 0914: General Information and HPI Consulting Request Date of Consult: 06/12/16 Assessment/Plan Other Findings/Comments: I have personally seen and examined the patient, and agree with the resident's assessment and plan as detailed above. The patient is a 81-year-old female with a past medical history significant for diabetes mellitus, hyperlipidemia, hypertension, chronic kidney disease, gout, neuropathy, and questionable heart failure as per the chart. The patient came into the emergency department following a cardiac arrest at home. The patient experienced wheezing over the past few days. The patient also complained of chest tightness with associated shortness of breath and cough. She was producing a small amount of phlegm and felt feverish with a temperature of 99. EMS was called due to the patient's worsening symptoms. The patient went to the bathroom and arrested. She was found asystolic by EMS and ACLS was initiated. She was intubated in the field. Chest compressions were performed with the mechanical CPR machine. In total, the patient received 11 doses of epinephrine prior to stabilization/return of spontaneous circulation. The patient was hypotensive and started on both dopamine and Levophed to maintain her blood pressure. An initial ABG showed a pH of 7.23, PCO2 26, PO2 99 and a bicarbonate of 11. Ventilation with improvement in her acidosis. She was started on hypothermia protocol as well. CT of the head showed diffuse loss of riojas-white matter, cerebral edema, most consistent with anoxic brain injury. Chest x-ray showed pulmonary edema. The patient had a leukocytosis of 18,000 and she was started on IV Unasyn for possible aspiration. The patient was found to have residual acute kidney injury with a creatinine of 2.6. The patient's troponin was positive. Liver enzymes are elevated. BNP 14,800. Potassium was 7.7. The patient remains unresponsive, off sedation. She remains on the hypothermia protocol. She remains on maximum dose of dopamine and 11 g of Levophed. Cardiology and nephrology consults are pending. Impression: 1. Status post cardiopulmonary arrest, of unclear etiology. The patient was found in asystole upon EMS arrival. She did have some chest tightness which could be suggestive of an KS, noting the patient was found to be in pulmonary edema on imaging. EKG + for LBBB. 2. Anoxic brain injury - the patient's pupils are fixed and dilated, she remains unresponsive off sedation. CT brain shows riding's consistent with significant anoxia. She remains on the hypothermia protocol. 3. Leukocytosis, most likely stress-induced. No obvious source of infection seen however the patient is being empirically covered with IV Unasyn. 4. Acute kidney injury. 5. Elevated transaminases, likely secondary to shock liver. 6. Diabetes with hyperglycemia. Plan: * Continue current vent settings. * Check a repeat ABG at noon. * Continue dopamine and Levophed to maintain systolic blood pressure greater than 65 mmHg. * Continue to trend troponins and serial EKGs. * Follow-up echocardiogram results. * We will discuss current situation with cardiology and nephrology. Will follow up recommendations. * Follow-up labs every 8 hours today. * Continue neuro checks. * Continue with hypothermia protocol. * Monitor blood sugars, continue sliding scale insulin, will initiate insulin drip if the patient's blood sugars remain elevated. * Continue empiric IV Unasyn, will follow up cultures. * Change IV fluid to normal saline at 50 ML per hour. * Monitor strict I's and O's. * Continue ventilator bundle - DVT/GI prophylaxis. * The patient is critically ill and has the possibility of a poor prognosis. I will discuss this with the patient's family once they arrive. Consult Acknowledgment - Thank you for your consult request.
[2016-06-12 08:00] VITALS: BP 98/60
--- NOTE | 2016-06-12 09:09 | RADIOLOGY REPORT ---
EXAMINATION: XR PORTABLE CHEST CLINICAL INFORMATION: Cardiac arrest status post CPR. Intubated patient. COMPARISON: CXR from 06/11/2016 TECHNIQUE: Portable AP view of the chest was obtained. FINDINGS: Endotracheal tube has been repositioned; its tip is now located 5.3 cm above the marli. Enteric tube extends below the diaphragm, into the stomach and beyond the [id number]. No pneumothorax or pneumomediastinum. Again noted is a large cardiac silhouette. Persistent perihilar opacity of alveolar edema. Pulmonary vessels are congested and somewhat indistinct. Small bilateral pleural effusions and bibasilar atelectasis are not appreciably changed. IMPRESSION: 1. Endotracheal tube has been repositioned, its tip now located 5.3 cm above the marli. 2. Cardiogenic pulmonary edema, small pleural effusions and bibasilar atelectasis are not significantly changed compared to the prior radiograph.
--- NOTE | 2016-06-12 10:56 | Cons- Nephrology ---
General Information and HPI Consulting Request Date of Consult: 06/12/16 Requested By: LUCÍA DELANEY,Mar ALLEN Reason for Consult: Acute kidney injury superimposed upon chronic kidney disease Source of Information: old records Exam Limitations: not alert/orientated, unresponsive status post cardiac arrest History of Present Illness: This 81-year-old woman has a history of chronic kidney disease coupled with diabetes, hyperlipidemia, gout and hypertension who presented to the emergency room with sustained cardiac arrest and hypotension requiring pressors and vigorous resuscitation. She currently is intubated and unresponsive on no sedation with fixed dilated pupils. She is followed by Dr. Latrell Palmer who had seen her in February of this past year. Her serum creatinine at that point was 2.18. She did not have significant proteinuria in the past. Allergies/Medications Home Med List: Amlodipine Besylate 10 MG TABLET 10 MG PO DAILY HTN (Reported) Calcitriol 0.25 MCG CAPSULE 0.25 MCG PO DAILY BONE HEALTH (Reported) Carvedilol 25 MG TABLET 25 MG PO BID HTN (Reported) Colchicine 0.6 MG TABLET 0.6 MG PO DAILY GOUT (Reported) Duloxetine HCl 30 MG CAPSULE.DR 30 MG PO DAILY MENTAL HEALTH (Reported) Hydralazine HCl 50 MG TABLET 50 MG PO BID HTN (Reported) Irbesartan/Hydrochlorothiazide (Irbesartan-Hctz 300-12.5 MG Tb) 300 MG-12.5 MG TABLET 12.5 MG PO DAILY HTN (Reported) Lovastatin 40 MG TABLET 40 MG PO DAILY CHOLESTEROL (Reported) Pregabalin (Lyrica) 25 MG CAPSULE 25 MG PO DAILY DM (Reported) Current Medications: Current Medications Sig/Katy Start time Last Medication Dose Route Stop Time Status Admin Acetaminophen 1,000 MG Q12P PRN 06/11 2330 AC IV Ampicillin Sodium/ 1,500 MG Q6 06/11 2359 AC 06/12 Sulbactam Sodium IV 0623 Sodium Chloride 100 ML Ampicillin Sodium/ 0 .STK-MED ONE 06/11 2351 DC Sulbactam Sodium .ROUTE Atropine Sulfate 1 MG ONCE ONE 06/11 2129 DC 06/11 IV PUSH 06/11 Calcium Chloride 1 GM ONCE ONE 06/11 2144 CAN IV PUSH 06/11 2145 Calcium Chloride 0 .STK-MED ONE 06/12 2139 DC .ROUTE Calcium Gluconate 1 GM ONCE ONE 06/12 0015 DC 03/15 Sodium Chloride 100 ML IV 06/12 0114 0145 Calcium Gluconate 1 GM ONCE ONE 06/11 2345 CAN IV 06/12 0100 Calcium Gluconate 1 GM ONCE ONE 06/11 2215 DC 06/11 IV 06/11 2216 2143 Dextrose 25 GM ONCE ONE 06/12 0130 DC 06/12 IV 06/12 0131 0144 Dextrose/Sodium 1,000 ML Q6H 06/11 2345 DC 06/12 Chloride IV 0631 Dopamine HCl 400 MG Q5H 06/12 0730 AC 06/12 Dextrose/Water 500 ML IV 0816 Dopamine HCl 400 MG ONCE ONE 06/11 2130 DC 06/11 Dextrose/Water 500 ML IV 07/02 1729 2050 Epinephrine 1 MG ONCE ONE 06/11 2130 DC 06/11 IV 06/11 213 203 Epinephrine 1 MG ONCE ONE 06/11 2130 DC 06/11 IV 06/11 2130 203 Epinephrine 1 MG ONCE ONE 06/11 2130 DC 06/11 IV 06/11 213 2040 Epinephrine 1 MG ONCE ONE 06/11 2130 DC 06/11 IV 06/11 213 204 Epinephrine 1 MG ONCE ONE 06/11 2130 DC 06/11 IV 06/11 213 204 Epinephrine 1 MG ONCE ONE 06/11 2130 DC 06/11 IV 06/11 213 2058 Heparin Sodium 5,000 UNIT Q8 06/11 2313 AC 06/12 (Porcine) SC 0623 Insulin Human Regular 0 Q6 06/12 0047 AC 06/12 SC 0615 Insulin Human Regular 10 UNITS ONCE ONE 06/11 2345 DC 06/12 IV 06/11 2346 0144 Insulin Human Regular 10 UNITS ONCE ONE 06/11 2130 DC 06/11 IV 06/11 2131 2143 Non-Formulary 0 SEE ADMIN CRITERIA 06/12 0030 DC Medication ANY Norepinephrine 8 MG Q12H 06/12 0300 AC 06/12 Sodium Chloride 250 ML IV 0632 Norepinephrine 8 MG Q24H 06/11 2230 DC 06/11 Sodium Chloride 250 ML IV 2211 Norepinephrine 4 MG Q24H 06/11 2215 DC Sodium Chloride 250 ML IV Norepinephrine 0 .STK-MED ONE 06/11 2204 DC IV Pantoprazole Sodium 0 .STK-MED ONE 06/11 2351 DC IV Pantoprazole Sodium 40 MG DAILY 06/11 2330 AC 06/11 IV 2358 Sodium Bicarbonate 50 MEQ ONCE ONE 06/11 2130 DC 03/14 IV / [id number] Sodium Chloride 1,000 ML Q20H 06/12 1000 AC IV Sodium Chloride 1,000 ML BOLUS ONE 06/110 DC / IV 06/11 Sodium Chloride 1,000 ML ONCE ONE 06/11 2130 DC / IV 06/12 0409 2037 Sodium Polystyrene 60 ML .STK-MED ONE 06/12 0233 DC Sulfonate PO 06/12 0234 Sodium Polystyrene 60 ML ONCE ONE 06/11 2345 DC / Sulfonate PO / 2346 0237 Review of Systems Review of Systems: Unobtainable as she is intubated and unresponsive. Past History Travel History Traveled to [place] past 21 day No Medical History Blood Transfusion Hx: No Cardiovascular: hypertension, hyperlipidemia Renal: chronic kidney disease Musculoskeletal: gout Endocrine: diabetes Surgical History Surgical History: unobtainable Psychosocial History Where Do You Live? Home Smoking Status: Never Smoked ETOH Use: denies use Illicit Drug Use: denies illicit drug use Functional Ability ADLs Independent: dressing, eating, toileting, bathing. Ambulation: independent IADLs Independent: shopping, housework, finances, food prep, telephone, transportation , medication admin. Exam & Diagnostic Data Vital Signs and I&O Vital Signs Date Time Temp Pulse Resp B/P Pulse O2 O2 Flow FiO2 Ox Delivery Rate 06/12 0816 79 104/53 06/12 0750 60 06/12 0632 80 114/51 06/12 0533 60 06/12 0400 97 Ventilator 60% 06/12 0311 60 06/12 0305 80 06/12 0220 99 Ventilator 80% 06/12 0147 80 06/12 0039 100 06/11 2337 88 20 78/40 98 Ventilator 100% 06/11 2330 100 06/11 2252 52/38 14 2238 58/30 06/11 2220 78 20 58/30 06/11 2218 Ventilator 06/11 221 95.0 80 98 Ventilator 06/11 2211 78 58/30 14 2200 54 20 38/0 99 Ventilator 06/11 2135 60 20 72/38 100 Ventilator 06/11 2124 82/46 06/11 2101 100 06/11 2100 56/42 06/110 50 20 74/40 06/12 2047 72/40 06/11 2037 92/40 Intake & Output 06/12 Intake Total 1999 Output Total Balance 1999 Intake, IV 2000 Patient 154 lb Weight Physical Exam General Appearance: well developed/nourished, no apparent distress, intubated, unresponsive Head: atraumatic, normal appearance Eyes: Bilateral: other (fixed and dilated pupils). Neck: normal inspection, supple, trachea mid line Respiratory: normal breath sounds Cardiovascular: regular rate/rhythm, edema Peripheral Pulses: 3+ femoral (R), 3+ femoral (L), 3+ popliteal (R), 3+ popliteal (L), 3+ tibialis posterior (R), 3+ tibialis posterior (L), 3+ dorsalis pedis (R), 3+ dorsalis pedis (L) Gastrointestinal: normal bowel sounds, soft, non-tender Extremities: normal inspection, no edema Neurologic/Psych: obtunded Skin: intact, normal color Lymphatic: no anterior cervical chris Results Pertinent Lab Results: Laboratory Tests 06/12 06/12 06/12 06/12 0800 0800 0510 0400 Blood Gas pH (7.35 - 7.45 PH) 7.40 pCO2 (35 - 45 TORR) 20 L pO2 (80 - 100 TORR) 74 L HCO3 (21 - 28 MEQ/L) 13 L ABG O2 Sat (Measured) (>96.0 %) 97.0 P-50 (Temp Corrected) Y Carboxyhemoglobin (1.5 - 5.0 %) 0.3 L O2 Concentration % 60% Temperature (97.0 - 100.0 FARH) 88.0 L Respiration Rate (BPM) 16 O2 Delivery Method ESPRIT Vent Mode AC Expiratory Pressure (CMH2O/P) 5 Tidal Volume (CC) 500 Chemistry Lactic Acid (0.7 - 2.1 mmol/L) 3.4 H 3.7 H Troponin I (< 0.11 ng/ml) 0.66 *H Miscellaneous Phlebotomy Draw Site RIGHT RADIAL 06/12 06/12 0400 0209 Chemistry Sodium (137 - 145 mmol/L) 140 Potassium (3.5 - 5.1 mmol/L) 4.6 Chloride (98 - 107 mmol/L) 111 H Carbon Dioxide (22 - 30 mmol/L) 14 L Anion Gap (5 - 16) 15 BUN (7 - 17 mg/dL) 51 H Creatinine (0.5 - 1.0 mg/dL) 2.6 H Estimated GFR (>60 ml/min) 18 L Glucose (65 - 99 mg/dL) 370 H Lactic Acid (0.7 - 2.1 mmol/L) 3.2 H Calcium (8.4 - 10.2 mg/dL) 8.1 L Phosphorus (2.5 - 4.5 mg/dL) 3.9 Magnesium (1.6 - 2.3 mg/dL) 2.2 Total Bilirubin (0.2 - 1.3 mg/dL) 0.7 AST (14 - 36 U/L) 267 H ALT (9 - 52 U/L) 144 H Albumin (3.5 - 5.0 g/dL) 2.4 L Hematology CBC w Diff MAN DIFF ORDERED WBC (4.8 - 10.8 /CUMM) 15.1 H RBC (4.20 - 5.40 /CUMM) 3.29 L Hgb (12.0 - 16.0 G/DL) 9.3 L Hct (37 - 47 %) 28.1 L MCV (81.0 - 99.0 FL) 85.5 MCH (27.0 - 31.0 PG) 28.1 RDW (11.5 - 14.5 %) 15.2 H Plt Count (130 - 400 /CUMM) 209 MPV (7.4 - 10.4 FL) 8.8 Gran % (42.2 - 75.2 %) 84.5 H Lymphocytes % (20.5 - 51.1 %) 13.3 L Monocytes % (1.7 - 9.3 %) 2.0 Eosinophils % (0 - 5 %) 0 Basophils % (0.0 - 2.0 %) 0.2 Absolute Granulocytes (1.4 - 6.5 /CUMM) 12.8 H Segmented Neutrophils (42.2 - 75.2 %) 71 Band Neutrophils (0.0 - 5.0 %) 11 H Absolute Lymphocytes (1.2 - 3.4 /CUMM) 2.0 Lymphocytes (20.5 - 51.1 %) 13 L Monocytes (1.7 - 9.3 %) 4 Absolute Monocytes (0.10 - 0.60 /CUMM) 0.3 Absolute Eosinophils (0.0 - 0.7 /CUMM) 0 Absolute Basophils (0.0 - 0.2 /CUMM) 0 Metamyelocytes (0.0 - 1.0 %) 1 Platelet Estimate (ADEQUATE) ADEQUATE Normocytic RBCs VERIFIED Hypochromic-Microcytic 1+ PUBS MCHC (33.0 - 37.0 G/DL) 32.9 L Other Body Source Fld Total RBCs Counted (%) 100 06/12 06/12 0125 0100 Blood Gas pH (7.35 - 7.45 PH) 7.47 H pCO2 (35 - 45 TORR) 17 L pO2 (80 - 100 TORR) 235 H HCO3 (21 - 28 MEQ/L) 12 L ABG O2 Sat (Measured) (>96.0 %) 98.0 P-50 (Temp Corrected) Y Carboxyhemoglobin (1.5 - 5.0 %) 0.3 L O2 Concentration % 100% Temperature (97.0 - 100.0 FARH) 90.9 L Respiration Rate (BPM) 20 O2 Delivery Method ESPRIT Vent Mode AC Expiratory Pressure (CMH2O/P) 5 Tidal Volume (CC) 500 Miscellaneous Phlebotomy Draw Site RIGHT RADIAL Urines Urine Color (YEL,AMB,STR) YEL Urine Clarity (CLEAR) CLEAR Urine pH (5.0 - 8.0) 6.0 Ur Specific [place] (1.001 - 1.035) 1.020 Urine Protein (NEG,<30 MG/DL) 100 H Urine Ketones (NEG) NEG Urine Nitrite (NEG) NEG Urine Bilirubin (NEG) NEG Urine Urobilinogen (0.1 - 1.0 EU/dl) 0.2 Ur Leukocyte Esterase (NEG) NEG Ur Microscopic SEDIMENT EXAMINED Ur Epithelial Cells (NONE,FEW) RARE Urine Bacteria (NEG/NONE) RARE H Micro UA Comment NEGATIVE MICROSCOPIC Urine Hemoglobin (NEG) NEG Urine Glucose (N MG/DL) 250 H 06/12 06/11 06/11 0050 2303 2205 Blood Gas pH (7.35 - 7.45 PH) 7.23 *L pCO2 (35 - 45 TORR) 26 L pO2 (80 - 100 TORR) 99 HCO3 (21 - 28 MEQ/L) 11 L ABG O2 Sat (Measured) (>96.0 %) 96.0 P-50 (Temp Corrected) N Carboxyhemoglobin (1.5 - 5.0 %) 0.4 L O2 Concentration % 100% Respiration Rate (BPM) 20 O2 Delivery Method VENT Vent Mode AC Expiratory Pressure (CMH2O/P) 5 Tidal Volume (CC) 500 Pressure Support (CMH2O/P) 0 Chemistry Sodium (137 - 145 mmol/L) 141 142 Potassium (3.5 - 5.1 mmol/L) 6.2 *H 6.5 *H Chloride (98 - 107 mmol/L) 114 H 114 H Carbon Dioxide (22 - 30 mmol/L) 12 L 13 L Anion Gap (5 - 16) 15 15 BUN (7 - 17 mg/dL) 50 H 48 H Creatinine (0.5 - 1.0 mg/dL) 2.4 H 2.4 H Estimated GFR (>60 ml/min) 19 L 19 L Glucose (65 - 99 mg/dL) 177 H 178 H Calcium (8.4 - 10.2 mg/dL) 8.4 8.6 Phosphorus (2.5 - 4.5 mg/dL) 7.0 H 8.7 H Magnesium (1.6 - 2.3 mg/dL) 2.4 H 2.5 H Total Bilirubin (0.2 - 1.3 mg/dL) 0.7 0.6 AST (14 - 36 U/L) 265 H 235 H ALT (9 - 52 U/L) 141 H 141 H Troponin I (< 0.11 ng/ml) 0.23 *H Albumin (3.5 - 5.0 g/dL) 2.7 L 2.8 L Coagulation PT (9.4 - 12.5 SEC) 11.2 INR (0.90 - 1.19) 1.07 APTT (25 - 37 SEC) 33 Miscellaneous Phlebotomy Draw Site RIGHT BRACHIAL 06/12 2051 Chemistry Sodium (137 - 145 mmol/L) 143 Potassium (3.5 - 5.1 mmol/L) 7.7 *H Chloride (98 - 107 mmol/L) 113 H Carbon Dioxide (22 - 30 mmol/L) 9 *L Anion Gap (5 - 16) 21 H BUN (7 - 17 mg/dL) 45 H Creatinine (0.5 - 1.0 mg/dL) 2.6 H Estimated GFR (>60 ml/min) 18 L BUN/Creatinine Ratio (7 - 25 %) 17.3 Glucose (65 - 99 mg/dL) 312 H Calcium (8.4 - 10.2 mg/dL) 9.2 Magnesium (1.6 - 2.3 mg/dL) 2.8 H Troponin I (< 0.11 ng/ml) 0.04 [id number] Pept (<125 pg/mL) 48335 H Hematology CBC w Diff MAN DIFF ORDERED WBC (4.8 - 10.8 /CUMM) 18.7 H RBC (4.20 - 5.40 /CUMM) 3.22 L Hgb (12.0 - 16.0 G/DL) 8.9 L Hct (37 - 47 %) 28.5 L MCV (81.0 - 99.0 FL) 88.5 MCH (27.0 - 31.0 PG) 27.5 RDW (11.5 - 14.5 %) 15.4 H Plt Count (130 - 400 /CUMM) 255 MPV (7.4 - 10.4 FL) 9.5 Gran % (42.2 - 75.2 %) 65.7 Lymphocytes % (20.5 - 51.1 %) 30.1 Monocytes % (1.7 - 9.3 %) 3.8 Eosinophils % (0 - 5 %) 0.2 Basophils % (0.0 - 2.0 %) 0.2 Absolute Granulocytes (1.4 - 6.5 /CUMM) 12.3 H Segmented Neutrophils (42.2 - 75.2 %) 51 Band Neutrophils (0.0 - 5.0 %) 1 Absolute Lymphocytes (1.2 - 3.4 /CUMM) 5.6 H Lymphocytes (20.5 - 51.1 %) 44 Monocytes (1.7 - 9.3 %) 4 Absolute Monocytes (0.10 - 0.60 /CUMM) 0.7 H Absolute Eosinophils (0.0 - 0.7 /CUMM) 0 Absolute Basophils (0.0 - 0.2 /CUMM) 0 Platelet Estimate (ADEQUATE) ADEQUATE Normocytic RBCs VERIFIED Normochromic RBCs VERIFIED PUBS MCHC (33.0 - 37.0 G/DL) 31.1 L Imaging/Other Studies: PATIENT: JACQUELINE KENNEDY PRESENT AGE: 81 PATIENT ACCOUNT NO: [id number] : 37 LOCATION: [facility] ORDERING PHYSICIAN: THEA ZUNIGA MD SERVICE DATE: 06/12/16 EXAM TYPE: RAD - XRY-PORTABLE CHEST XRAY EXAMINATION: XR PORTABLE CHEST CLINICAL INFORMATION: Cardiac arrest status post CPR. Intubated patient. COMPARISON: CXR from 06/11/2016 TECHNIQUE: Portable AP view of the chest was obtained. FINDINGS: Endotracheal tube has been repositioned; its tip is now located 5.3 cm above the marli. Enteric tube extends below the diaphragm, into the stomach and beyond the [id number]. No pneumothorax or pneumomediastinum. Again noted is a large cardiac silhouette. Persistent perihilar opacity of alveolar edema. Pulmonary vessels are congested and somewhat indistinct. Small bilateral pleural effusions and bibasilar atelectasis are not appreciably changed. IMPRESSION: 1. Endotracheal tube has been repositioned, its tip now located 5.3 cm above the marli. 2. Cardiogenic pulmonary edema, small pleural effusions and bibasilar atelectasis are not significantly changed compared to the prior radiograph. DICTATED BY: RENZO BULLOCK MD DATE/TIME DICTATED:06/12/16901 EMPLOYMENT LEGAL ASSISTANT:BERTIN DATE/TIME TRANSCRIBED:06/12/16901 CONFIDENTIAL, DO NOT COPY WITHOUT APPROPRIATE AUTHORIZATION. <Electronically signed in Other Vendor System> SIGNED BY: RENZO BULLOCK MD 06/12/16908 PATIENT: JACQUELINE KENNEDY PRESENT AGE: 81 PATIENT ACCOUNT NO: [id number] : 37 LOCATION: [facility] ORDERING PHYSICIAN: THEA ZUNIGA MD SERVICE DATE: 06/11/16 EXAM TYPE: CAT - CT HEAD WO IV CONTRAST EXAMINATION: CT HEAD WITHOUT CONTRAST CLINICAL INFORMATION: Status post CPR. On ventilator. COMPARISON: None TECHNIQUE: Contiguous axial imaging was performed from the skull base to vertex without intravenous administration of contrast. DLP: 529 mGy-cm FINDINGS: There is diffuse loss of riojas to white matter differentiation. The basal ganglia are difficult to distinguish. Although no prior study is available for comparison, there is suggestion of diffuse cerebral edema with mild sulcal effacement. No evidence of herniation at this time. There is no evidence of acute intracranial hemorrhage. No midline shift is seen. No extra-axial fluid collections are identified. No acute osseous or soft tissue abnormality. The paranasal sinuses are diffusely opacified. The mastoid air cells are well-aerated. IMPRESSION: Diffuse loss of riojas-white matter differentiation most consistent with a diffuse anoxic injury. This critical result was discussed with Dr. Frank by telephone at 06/12/2016 12:32 AM and it was ascertained that the content and urgency of the report was understood at the time of direct communication. DICTATED BY: DUSTIN HENRY MD DATE/TIME DICTATED:06/12/1647 EMPLOYMENT LEGAL ASSISTANT:BERTIN DATE/TIME TRANSCRIBED:06/12/1647 CONFIDENTIAL, DO NOT COPY WITHOUT APPROPRIATE AUTHORIZATION. <Electronically signed in Other Vendor System> SIGNED BY: DUSTIN HENRY MD 06/12 0057 Assessment/Plan Assessment/Recommendations Assessment: 1. Acute kidney injury status post cardiac arrest. She is oligo-anuric. There is no acute indication for hemodialysis here. 2. Chronic kidney disease. She has a history of hypertension and diabetes. 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 She has not had nephrotic range proteinuria however. Her baseline serum creatinine has run between 2.18-2.5 mg/dL. That would suggest significant underlying chronic kidney disease. 3. Gout 4. Diabetes mellitus 5. 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 Currently on the hypothermia protocol. Given the CT findings, suspect that she will not recover given that background, would not consider dialysis should the need arise. 6. Hyperkalemia. Now resolved. Likely reflected issues with her kyung-arrest period. Her most recent potassiums as an outpatient have been normal. She was on irbesartan as an outpatient. Recommendations: 1. No acute indication for dialysis 2. We'll continue to follow
--- NOTE | 2016-06-12 14:09 | ECHOCARDIOGRAM REPORT ---
JACQUELINE KENNEDY Age: 81 : 1935 Gender: F Exam Date: 06/12/2016 11:28 Exam Location: [facility] Ht (in): 62 Wt (lb): 140 BSA: 1.68 BP: 118 / 57 Ordering Physician: THEA ZUNIGA MD Referring Physician: THEA ZUNIGA MD Technologist: Brad Dick LOLIS Room Number: 107 Indications: HYPOTENSION Rhythm: Sinus Technical Quality: Fair, Technically difficult study FINDINGS Left Ventricle Normal size left ventricle. Left ventricular wall thickness increased. Mildly reduced global left ventricular systolic function. Mildly abnormal left ventricular ejection fraction estimated at 35- 40%. Right Ventricle Right ventricle not well visualized, grossly normal. Right Atrium Normal right atrial size. Left Atrium Mild left atrial dilatation. Mitral Valve Mitral valve thickened. Mild mitral regurgitation. Aortic Valve Trileaflet aortic valve. Diffuse thickening (sclerosis) of the aortic valve cusps without reduced excursion. No aortic stenosis. No aortic regurgitation. Tricuspid Valve Tricuspid valve not well visualized, grossly normal. Mild tricuspid regurgitation. Pulmonic Valve Pulmonic valve not well visualized, grossly normal. Pericardium Small pericardial effusion. Left pleural effusion. Great Vessels Aortic root and proximal ascending aorta not well visualized, grossly normal. CONCLUSIONS 1. Aortic sclerosis is present with no valvular stenosis or insufficiency. 2. Mitral leaflet thickening is present with minimal to mild mitral insufficiency and mild left atrial enlargement. 3. A small pericardial effusion is present which is hemodynamically insignificant. 4. A moderate sized left pleural effusion is present. 5. The left ventricular chamber size is nromal with mild to moderate concentric hypertrophy and global hypokinesia which is slightly worse in the inferoposterior segments with an ejection fraction of approximately 40%. 6. The right heart structures are grossly normal but were not optimally assessed. Mild tricuspid insufficiency is present. The RV systolic pressure was not accurately assessed. 7. Ventricular ectopy was noted during the examination. Lewis Kaye M.D. (Electronically Signed) Final Date: 12 June 2016 14:08 MEASUREMENTS (Male / Female) Normal Values 2D ECHO LV Diastolic Diameter PLAX 4.4 cm 4.2 - 5.9 / 3.9 - 5.3 cm LV Systolic Diameter PLAX 3.5 cm 2.1 - 4.0 cm LV Fractional Shortening PLAX 20.5 % 25 - 46 % LV Ejection Fraction 2D Teich 42.0 % IVS Diastolic Thickness 1.5 cm LVPW Diastolic Thickness 1.3 cm LV Relative Wall Thickness 0.6 LVOT Diameter 1.9 cm Aortic Root Diameter 3.1 cm LA Systolic Diameter LX 2.5 cm 3.0 - 4.0 / 2.7 - 3.8 cm LV Diastolic Length 4C 6.9 cm 6.9 - 10.3 cm LV Diastolic Area 4C 21.8 cm LV Diastolic Volume MOD 4C 59.0 cm LV Ejection Fraction MOD 4C 42.4 % LV Stroke Volume MOD 4C 25.0 cm LV Systolic Length 4C 5.7 cm LV Systolic Area 4C 15.2 cm LV Systolic Volume MOD 4C 34.0 cm LV Ejection Fraction MOD 2C 25.0 % LV Diastolic Volume 4C AL 58.9 cm 85 - 139 / 69 - 109 cm LV Systolic Volume 4C AL 34.3 cm LV Ejection Fraction 4C AL 41.7 % LV Stroke Volume 4C AL 24.6 cm LV Ejection Fraction 2C AL 30.5 % LA Volume 42.0 cm 18 - 58 / 22 - 52 cm Ascending Aorta Diameter 3.0 cm DOPPLER AV Peak Velocity 123.0 cm/s AV Peak Gradient 6.1 mmHg AV Mean Velocity 75.0 cm/s AV Mean Gradient 3.0 mmHg AV Velocity Time Integral 28.2 cm LVOT Peak Velocity 66.9 cm/s LVOT Peak Gradient 1.8 mmHg LVOT Mean Velocity 43.2 cm/s LVOT Mean Gradient 1.0 mmHg LVOT Velocity Time Integral 16.7 cm LVOT Stroke Volume 47.3 cm AV Area Cont Eq vti 1.7 cm AV Area Cont Eq pk 1.5 cm MV Peak Velocity 85.5 cm/s MV Peak Gradient 2.9 mmHg MV Mean Velocity 54.3 cm/s MV Mean Gradient 1.0 mmHg Mitral E Point Velocity 93.8 cm/s MV PHT Velocity 63.8 cm/s MV Deceleration [place] 278.0 cm/s MV Pressure Half Time 68.8 ms MV Area PHT 3.2 cm MV Deceleration Time 197.0 ms TR Peak Velocity 270.0 cm/s TR Peak Gradient 29.2 mmHg Right Atrial Pressure 10.0 mmHg Pulmonary Artery Systolic Pressu 39.2 mmHg Right Ventricular Systolic Press 39.2 mmHg PV Peak Velocity 119.0 cm/s PV Peak Gradient 5.7 mmHg PV Mean Velocity 74.7 cm/s PV Mean Gradient 3.0 mmHg PV Velocity Time Integral 19.1 cm
--- NOTE | 2016-06-12 14:15 | Cons- Cardiology ---
General Information and HPI Consulting Request Date of Consult: 06/12/16 Requested By: LUCÍA DELANEY,Mar ALLEN Reason for Consult: Assistance with cardiac management post cardiac arrest Source of Information: old records Exam Limitations: unable to give history, clinical condition History of Present Illness: The patient is a 81-year-old female. She is admitted to the hospital via the emergency room after a cardiac arrest. History is not obtainable from the patient at the present time due to her neurologic status, intubation, etc. Apparently, the patient was feeling poorly at home. She was getting ready to go to the emergency room. Subsequently, the patient found was found in the bathroom by her family unresponsive. On arrival of the paramedics, the patient was asystolic. She was received multiple rounds of of medications and, on arrival to the emergency him, and she was in persistent asystole. Ultimately, after multiple rounds of medications, and CPR, the patient did revert to a bradycardic rhythm and subsequently sinus rhythm. Nevertheless, there appears to better than anoxic encephalopathy insult due to the prolonged down time. At the present time, the patient is intubated, unresponsive, on multiple pressors. Her CT scan is consistent with anoxic brain injury. Her troponin is mildly elevated. Multiple metabolic abnormalities noted. 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 Present EKG shows left bundle-branch block with sinus rhythm. Allergies/Medications Home Med List: Amlodipine Besylate 10 MG TABLET 10 MG PO DAILY HTN (Reported) Calcitriol 0.25 MCG CAPSULE 0.25 MCG PO DAILY BONE HEALTH (Reported) Carvedilol 25 MG TABLET 25 MG PO BID HTN (Reported) Colchicine 0.6 MG TABLET 0.6 MG PO DAILY GOUT (Reported) Duloxetine HCl 30 MG CAPSULE.DR 30 MG PO DAILY MENTAL HEALTH (Reported) Hydralazine HCl 50 MG TABLET 50 MG PO BID HTN (Reported) Irbesartan/Hydrochlorothiazide (Irbesartan-Hctz 300-12.5 MG Tb) 300 MG-12.5 MG TABLET 12.5 MG PO DAILY HTN (Reported) Lovastatin 40 MG TABLET 40 MG PO DAILY CHOLESTEROL (Reported) Pregabalin (Lyrica) 25 MG CAPSULE 25 MG PO DAILY DM (Reported) Current Medications: Current Medications Sig/Katy Start time Last Medication Dose Route Stop Time Status Admin Acetaminophen 1,000 MG Q12P PRN 06/11 2330 AC IV Ampicillin Sodium/ 1,500 MG Q6 06/11 2359 AC 06/12 Sulbactam Sodium IV 1302 Sodium Chloride 100 ML Ampicillin Sodium/ 0 .STK-MED ONE 06/11 2351 DC Sulbactam Sodium .ROUTE Artificial Tears 2 GTT 4 TIMES/DAY 06/12 1400 AC OPH Atropine Sulfate 1 MG ONCE ONE 06/11 2130 DC 06/11 IV PUSH 06/11 2131 2043 Calcium Chloride 1 GM ONCE ONE 06/11 2145 CAN IV PUSH 06/11 2146 Calcium Chloride 0 .STK-MED ONE 06/11 2140 DC .ROUTE Calcium Gluconate 1 GM ONCE ONE 06/12 0015 DC 06/12 Sodium Chloride 100 ML IV 06/12 0114 0145 Calcium Gluconate 1 GM ONCE ONE 06/11 2345 CAN IV 06/12 0100 Calcium Gluconate 1 GM ONCE ONE 06/11 2215 DC 06/11 IV 06/11 2216 2143 Dextrose 25 GM ONCE ONE 06/12 0130 DC 06/12 IV 06/12 0131 0144 Dextrose/Sodium 1,000 ML Q6H 06/11 2345 DC 06/12 Chloride IV 0631 Dopamine HCl 400 MG Q5H 06/12 0730 AC 06/12 Dextrose/Water 500 ML IV 1303 Dopamine HCl 400 MG ONCE ONE 06/11 2130 DC 06/11 Dextrose/Water 500 ML IV 04/ 1729 2050 Epinephrine 1 MG ONCE ONE 06/11 2130 DC 06/11 IV 06/11 2130 2032 Epinephrine 1 MG ONCE ONE 06/11 2130 DC 06/11 IV 06/11 213 203 Epinephrine 1 MG ONCE ONE 06/11 2130 DC 06/11 IV 06/11 213 2040 Epinephrine 1 MG ONCE ONE 06/11 2130 DC / IV 06/11 213 204 Epinephrine 1 MG ONCE ONE 06/11 2130 DC 06/11 IV 06/11 213 2047 Epinephrine 1 MG ONCE ONE 06/110 DC 06/11 IV 06/11 2130 205 Heparin Sodium 5,000 UNIT Q8 06/11 2313 AC 06/12 (Porcine) SC 0623 Insulin Human Regular 0 Q6 06/12 0047 AC 06/12 SC 1303 Insulin Human Regular 10 UNITS ONCE ONE 06/11 2345 DC 06/12 IV 06/11 2346 0144 Insulin Human Regular 10 UNITS ONCE ONE 06/11 2130 DC 06/11 IV 06/11 213 2143 Non-Formulary 0 SEE ADMIN CRITERIA 06/12 0030 DC Medication ANY Norepinephrine 8 MG Q12H 06/12 0300 AC 06/12 Sodium Chloride 250 ML IV 0632 Norepinephrine 8 MG Q24H 06/11 2230 DC 06/11 Sodium Chloride 250 ML IV 2211 Norepinephrine 4 MG Q24H 06/11 221 DC Sodium Chloride 250 ML IV Norepinephrine 0 .STK-MED ONE 06/11 2204 DC IV Pantoprazole Sodium 0 .STK-MED ONE 06/11 2351 DC IV Pantoprazole Sodium 40 MG DAILY 06/11 2330 AC 06/12 IV 1107 Sodium Bicarbonate 50 MEQ ONCE ONE 06/110 DC 06/11 IV 06/11 2130 212 Sodium Chloride 1,000 ML Q20H 06/12 1000 AC 06/12 IV 1107 Sodium Chloride 1,000 ML BOLUS ONE 06/11 2130 DC 06/11 IV 06/11 2229 2038 Sodium Chloride 1,000 ML ONCE ONE 06/11 213 DC 06/11 IV 06/12 0409 2037 Sodium Polystyrene 60 ML .STK-MED ONE 06/12 0233 DC Sulfonate PO 06/12 0234 Sodium Polystyrene 60 ML ONCE ONE 06/11 2345 DC 06/12 Sulfonate PO 06/11 2346 0237 Past History Travel History Traveled to [place] past 21 day No Medical History Blood Transfusion Hx: No Cardiovascular: hypertension, hyperlipidemia Renal: chronic kidney disease Musculoskeletal: gout Endocrine: diabetes Surgical History Surgical History: unobtainable Psychosocial History Where Do You Live? Home Smoking Status: Never Smoked ETOH Use: denies use Illicit Drug Use: denies illicit drug use Functional Ability ADLs Independent: dressing, eating, toileting, bathing. Ambulation: independent IADLs Independent: shopping, housework, finances, food prep, telephone, transportation , medication admin. Exam & Diagnostic Data Vital Signs and I&O Vital Signs Date Time Temp Pulse Resp B/P Pulse O2 O2 Flow FiO2 Ox Delivery Rate 06/12 1407 60 06/12 1113 60 06/12 0816 79 104/53 06/12 0750 60 06/12 0632 80 114/51 06/12 0533 60 06/12 0400 97 Ventilator 60% 06/12 0311 60 06/12 0305 80 06/12 0220 99 Ventilator 80% 06/12 0147 80 06/12 0039 100 06/11 2337 88 20 78/40 98 Ventilator 100% 06/11 2330 100 06/11 2252 52/38 06/11 2238 58/30 06/11 2220 78 20 58/30 06/11 2218 Ventilator 06/11 2214 95.0 80 98 Ventilator 06/11 2211 78 58/30 06/11 2200 54 20 38/0 99 Ventilator 06/11 2135 60 20 72/38 100 Ventilator 06/11 2124 82/46 06/11 2101 100 06/11 2100 56/42 06/11 2050 50 20 74/40 06/11 2048 72/40 06/11 2038 92/40 Intake & Output 06/12 1600 06/12 0800 06/12 0000 06/11 1600 06/11 0800 06/11 0000 Intake Total 1999 Output Total Balance 2000 Intake, IV 2000 Patient 154 lb 154 lb 140 lb Weight Physical Exam: General Appearance intubated, unresponsive, on multiple pressors HEENT fixed and dilated pupils bilaterally Neck JVP not appreciated, carotids normal bilaterally Cardiovascular Regular Rate, Normal S1, Normal S2, 1/6 systolic murmur left sternal border Lungs bilateral rhonchi with scattered crackles Abdomen Soft, No Masses, distended Extremities trace bilateral edema Labs/Elliott Results: Laboratory Tests 06/12 06/12 06/12 06/12 1312 1100 0800 0800 Blood Gas pH (7.35 - 7.45 PH) 7.32 L pCO2 (35 - 45 TORR) 23 L pO2 (80 - 100 TORR) 91 HCO3 (21 - 28 MEQ/L) 12 L ABG O2 Sat (Measured) (>96.0 %) 96.0 P-50 (Temp Corrected) N Carboxyhemoglobin (1.5 - 5.0 %) 0.1 L O2 Concentration % .60 Respiration Rate (BPM) 16 O2 Delivery Method VENT Vent Mode A/C Expiratory Pressure (CMH2O/P) 5 Tidal Volume (CC) 500 Chemistry Sodium Pending Potassium Pending Chloride Pending Carbon Dioxide Pending Anion Gap Pending BUN Pending Creatinine Pending Glucose Pending Lactic Acid (0.7 - 2.1 mmol/L) Pending 3.4 H Calcium Pending Phosphorus Pending Magnesium Pending Total Bilirubin Pending AST Pending ALT Pending Troponin I (< 0.11 ng/ml) Pending 0.66 *H Albumin Pending Hematology CBC w Diff Pending WBC Pending RBC Pending Hgb Pending Hct Pending MCV Pending MCH Pending RDW Pending Plt Count Pending MPV Pending PUBS MCHC Pending Miscellaneous Phlebotomy Draw Site RIGHT RADIAL 06/12 06/12 0510 0400 Blood Gas pH (7.35 - 7.45 PH) 7.40 pCO2 (35 - 45 TORR) 20 L pO2 (80 - 100 TORR) 74 L HCO3 (21 - 28 MEQ/L) 13 L ABG O2 Sat (Measured) (>96.0 %) 97.0 P-50 (Temp Corrected) Y Carboxyhemoglobin (1.5 - 5.0 %) 0.3 L O2 Concentration % 60% Temperature (97.0 - 100.0 FARH) 88.0 L Respiration Rate (BPM) 16 O2 Delivery Method ESPRIT Vent Mode AC Expiratory Pressure (CMH2O/P) 5 Tidal Volume (CC) 500 Chemistry Lactic Acid (0.7 - 2.1 mmol/L) 3.7 H Miscellaneous Phlebotomy Draw Site RIGHT RADIAL 06/12 06/12 0400 0209 Chemistry Sodium (137 - 145 mmol/L) 140 Potassium (3.5 - 5.1 mmol/L) 4.6 Chloride (98 - 107 mmol/L) 111 H Carbon Dioxide (22 - 30 mmol/L) 14 L Anion Gap (5 - 16) 15 BUN (7 - 17 mg/dL) 51 H Creatinine (0.5 - 1.0 mg/dL) 2.6 H Estimated GFR (>60 ml/min) 18 L Glucose (65 - 99 mg/dL) 370 H Lactic Acid (0.7 - 2.1 mmol/L) 3.2 H Calcium (8.4 - 10.2 mg/dL) 8.1 L Phosphorus (2.5 - 4.5 mg/dL) 3.9 Magnesium (1.6 - 2.3 mg/dL) 2.2 Total Bilirubin (0.2 - 1.3 mg/dL) 0.7 AST (14 - 36 U/L) 267 H ALT (9 - 52 U/L) 144 H Albumin (3.5 - 5.0 g/dL) 2.4 L Hematology CBC w Diff MAN DIFF ORDERED WBC (4.8 - 10.8 /CUMM) 15.1 H RBC (4.20 - 5.40 /CUMM) 3.29 L Hgb (12.0 - 16.0 G/DL) 9.3 L Hct (37 - 47 %) 28.1 L MCV (81.0 - 99.0 FL) 85.5 MCH (27.0 - 31.0 PG) 28.1 RDW (11.5 - 14.5 %) 15.2 H Plt Count (130 - 400 /CUMM) 209 MPV (7.4 - 10.4 FL) 8.8 Gran % (42.2 - 75.2 %) 84.5 H Lymphocytes % (20.5 - 51.1 %) 13.3 L Monocytes % (1.7 - 9.3 %) 2.0 Eosinophils % (0 - 5 %) 0 Basophils % (0.0 - 2.0 %) 0.2 Absolute Granulocytes (1.4 - 6.5 /CUMM) 12.8 H Segmented Neutrophils (42.2 - 75.2 %) 71 Band Neutrophils (0.0 - 5.0 %) 11 H Absolute Lymphocytes (1.2 - 3.4 /CUMM) 2.0 Lymphocytes (20.5 - 51.1 %) 13 L Monocytes (1.7 - 9.3 %) 4 Absolute Monocytes (0.10 - 0.60 /CUMM) 0.3 Absolute Eosinophils (0.0 - 0.7 /CUMM) 0 Absolute Basophils (0.0 - 0.2 /CUMM) 0 Metamyelocytes (0.0 - 1.0 %) 1 Platelet Estimate (ADEQUATE) ADEQUATE Normocytic RBCs VERIFIED Hypochromic-Microcytic 1+ PUBS MCHC (33.0 - 37.0 G/DL) 32.9 L Other Body Source Fld Total RBCs Counted (%) 100 06/12 06/12 0125 0100 Blood Gas pH (7.35 - 7.45 PH) 7.47 H pCO2 (35 - 45 TORR) 17 L pO2 (80 - 100 TORR) 235 H HCO3 (21 - 28 MEQ/L) 12 L ABG O2 Sat (Measured) (>96.0 %) 98.0 P-50 (Temp Corrected) Y Carboxyhemoglobin (1.5 - 5.0 %) 0.3 L O2 Concentration % 100% Temperature (97.0 - 100.0 FARH) 90.9 L Respiration Rate (BPM) 20 O2 Delivery Method ESPRIT Vent Mode AC Expiratory Pressure (CMH2O/P) 5 Tidal Volume (CC) 500 Miscellaneous Phlebotomy Draw Site RIGHT RADIAL Urines Urine Color (YEL,AMB,STR) YEL Urine Clarity (CLEAR) CLEAR Urine pH (5.0 - 8.0) 6.0 Ur Specific [place] (1.001 - 1.035) 1.020 Urine Protein (NEG,<30 MG/DL) 100 H Urine Ketones (NEG) NEG Urine Nitrite (NEG) NEG Urine Bilirubin (NEG) NEG Urine Urobilinogen (0.1 - 1.0 EU/dl) 0.2 Ur Leukocyte Esterase (NEG) NEG Ur Microscopic SEDIMENT EXAMINED Ur Epithelial Cells (NONE,FEW) RARE Urine Bacteria (NEG/NONE) RARE H Micro UA Comment NEGATIVE MICROSCOPIC Urine Hemoglobin (NEG) NEG Urine Glucose (N MG/DL) 250 H 06/12 06/11 06/11 0050 2303 2205 Blood Gas pH (7.35 - 7.45 PH) 7.23 *L pCO2 (35 - 45 TORR) 26 L pO2 (80 - 100 TORR) 99 HCO3 (21 - 28 MEQ/L) 11 L ABG O2 Sat (Measured) (>96.0 %) 96.0 P-50 (Temp Corrected) N Carboxyhemoglobin (1.5 - 5.0 %) 0.4 L O2 Concentration % 100% Respiration Rate (BPM) 20 O2 Delivery Method VENT Vent Mode AC Expiratory Pressure (CMH2O/P) 5 Tidal Volume (CC) 500 Pressure Support (CMH2O/P) 0 Chemistry Sodium (137 - 145 mmol/L) 141 142 Potassium (3.5 - 5.1 mmol/L) 6.2 *H 6.5 *H Chloride (98 - 107 mmol/L) 114 H 114 H Carbon Dioxide (22 - 30 mmol/L) 12 L 13 L Anion Gap (5 - 16) 15 15 BUN (7 - 17 mg/dL) 50 H 48 H Creatinine (0.5 - 1.0 mg/dL) 2.4 H 2.4 H Estimated GFR (>60 ml/min) 19 L 19 L Glucose (65 - 99 mg/dL) 177 H 178 H Calcium (8.4 - 10.2 mg/dL) 8.4 8.6 Phosphorus (2.5 - 4.5 mg/dL) 7.0 H 8.7 H Magnesium (1.6 - 2.3 mg/dL) 2.4 H 2.5 H Total Bilirubin (0.2 - 1.3 mg/dL) 0.7 0.6 AST (14 - 36 U/L) 265 H 235 H ALT (9 - 52 U/L) 141 H 141 H Troponin I (< 0.11 ng/ml) 0.23 *H Albumin (3.5 - 5.0 g/dL) 2.7 L 2.8 L Coagulation PT (9.4 - 12.5 SEC) 11.2 INR (0.90 - 1.19) 1.07 APTT (25 - 37 SEC) 33 Miscellaneous Phlebotomy Draw Site RIGHT BRACHIAL 06/12 2051 Chemistry Sodium (137 - 145 mmol/L) 143 Potassium (3.5 - 5.1 mmol/L) 7.7 *H Chloride (98 - 107 mmol/L) 113 H Carbon Dioxide (22 - 30 mmol/L) 9 *L Anion Gap (5 - 16) 21 H BUN (7 - 17 mg/dL) 45 H Creatinine (0.5 - 1.0 mg/dL) 2.6 H Estimated GFR (>60 ml/min) 18 L BUN/Creatinine Ratio (7 - 25 %) 17.3 Glucose (65 - 99 mg/dL) 312 H Calcium (8.4 - 10.2 mg/dL) 9.2 Magnesium (1.6 - 2.3 mg/dL) 2.8 H Troponin I (< 0.11 ng/ml) 0.04 [id number] Pept (<125 pg/mL) 60306 H Hematology CBC w Diff MAN DIFF ORDERED WBC (4.8 - 10.8 /CUMM) 18.7 H RBC (4.20 - 5.40 /CUMM) 3.22 L Hgb (12.0 - 16.0 G/DL) 8.9 L Hct (37 - 47 %) 28.5 L MCV (81.0 - 99.0 FL) 88.5 MCH (27.0 - 31.0 PG) 27.5 RDW (11.5 - 14.5 %) 15.4 H Plt Count (130 - 400 /CUMM) 255 MPV (7.4 - 10.4 FL) 9.5 Gran % (42.2 - 75.2 %) 65.7 Lymphocytes % (20.5 - 51.1 %) 30.1 Monocytes % (1.7 - 9.3 %) 3.8 Eosinophils % (0 - 5 %) 0.2 Basophils % (0.0 - 2.0 %) 0.2 Absolute Granulocytes (1.4 - 6.5 /CUMM) 12.3 H Segmented Neutrophils (42.2 - 75.2 %) 51 Band Neutrophils (0.0 - 5.0 %) 1 Absolute Lymphocytes (1.2 - 3.4 /CUMM) 5.6 H Lymphocytes (20.5 - 51.1 %) 44 Monocytes (1.7 - 9.3 %) 4 Absolute Monocytes (0.10 - 0.60 /CUMM) 0.7 H Absolute Eosinophils (0.0 - 0.7 /CUMM) 0 Absolute Basophils (0.0 - 0.2 /CUMM) 0 Platelet Estimate (ADEQUATE) ADEQUATE Normocytic RBCs VERIFIED Normochromic RBCs VERIFIED PUBS MCHC (33.0 - 37.0 G/DL) 31.1 L Diagnostic Data EKG Results Sinus rhythm; left bundle branch block CXR Results FINDINGS: Endotracheal tube has been repositioned; its tip is now located 5.3 cm above the marli. Enteric tube extends below the diaphragm, into the stomach and beyond the [id number]. No pneumothorax or pneumomediastinum. Again noted is a large cardiac silhouette. Persistent perihilar opacity of alveolar edema. Pulmonary vessels are congested and somewhat indistinct. Small bilateral pleural effusions and bibasilar atelectasis are not appreciably changed. IMPRESSION: 1. Endotracheal tube has been repositioned, its tip now located 5.3 cm above the marli. 2. Cardiogenic pulmonary edema, small pleural effusions and bibasilar atelectasis are not significantly changed compared to the prior radiograph. Other Results Head CT: FINDINGS: There is diffuse loss of riojas to white matter differentiation. The basal ganglia are difficult to distinguish. Although no prior study is available for comparison, there is suggestion of diffuse cerebral edema with mild sulcal effacement. No evidence of herniation at this time. There is no evidence of acute intracranial hemorrhage. No midline shift is seen. No extra-axial fluid collections are identified. No acute osseous or soft tissue abnormality. The paranasal sinuses are diffusely opacified. The mastoid air cells are well-aerated. IMPRESSION: Diffuse loss of riojas-white matter differentiation most consistent with a diffuse anoxic injury. Assessment/Plan Assessment/Plan Assessment: 1. Status post asystolic cardiac arrest 2. Elevated troponin 3. Acute respiratory failure, currently intubated 4. Congestive heart failure on chest x-ray with elevated proBNP 5. Anoxic brain injury status post cardiac arrest 6. Acute on chronic renal insufficiency 7. Persistent hypotension requiring multiple pressors 8. Metabolic acidosis 9. Hyperkalemia-resolved 10. Transaminitis 11. Leukocytosis Recommendations: -Continue all supportive care as per the critical care team -Trend troponins until decreasing -Continue pressor support as needed -The patient's echocardiogram shows mild to moderate left ventricular hypertrophy with a small pericardial effusion and a moderate left pleural effusion. There is global hypokinesia with an ejection fraction of approximately 40%. The right ventricular systolic pressure cannot be assessed. -Formal neurology input pending. -Nephrology input noted -Further plans after the above Consult Acknowledgment - Thank you for your consult request.
[2016-06-12 14:31] LABS: ABSOLUTE BASOPHIL COUNT 0 /CUMM (0.0-0.2); ABSOLUTE EOSINOPHIL COUNT 0 /CUMM (0.0-0.7); ABSOLUTE GRANULOCYTE CT 9.6 /CUMM (1.4-6.5); ABSOLUTE LYMPH COUNT 2.4 /CUMM (1.2-3.4); ABSOLUTE MONOCYTE COUNT 0.2 /CUMM (0.10-0.60); BASOPHIL % 0.1 % (0.0-2.0); EOSINOPHIL % 0 % (0-5); GRANULOCYTE % 78.4 % (42.2-75.2); HEMATOCRIT 27.9 % (37-47); MEAN CORPUSCULAR HGB 27.7 PG (27.0-31.0); MEAN CORPUSCULAR HGB CONC 32.8 G/DL (33.0-37.0); MEAN CORPUSCULAR VOLUME 84.5 FL (81.0-99.0); PLATELET COUNT 200 /CUMM (130-400); RBC DISTRIBUTION WIDTH 15.1 % (11.5-14.5); WHITE BLOOD CELL COUNT 12.2 /CUMM (4.8-10.8)
[2016-06-12 16:00] VITALS: BP 116/62
--- NOTE | 2016-06-12 22:28 | Event Note ---
Event Note Event Note: Hyperglycemia, uncontrolled with SS w/ concer regarding developing. Started on Insulin drip and Bs check Q1 h. matter was reported to Dr. Neel DELANEY
[2016-06-12 22:31] LABS: ABSOLUTE BASOPHIL COUNT 0 /CUMM (0.0-0.2); ABSOLUTE EOSINOPHIL COUNT 0 /CUMM (0.0-0.7); ABSOLUTE LYMPH COUNT 1.7 /CUMM (1.2-3.4); ABSOLUTE MONOCYTE COUNT 0.2 /CUMM (0.10-0.60); BASOPHIL % 0.1 % (0.0-2.0); EOSINOPHIL % 0 % (0-5); GRANULOCYTE % 79.4 % (42.2-75.2); HEMATOCRIT 25.8 % (37-47); MEAN CORPUSCULAR VOLUME 84.6 FL (81.0-99.0); MEAN PLATELET VOLUME 8.7 FL (7.4-10.4); PLATELET COUNT 160 /CUMM (130-400); RBC DISTRIBUTION WIDTH 14.8 % (11.5-14.5); RED BLOOD CELL CT 3.05 /CUMM (4.20-5.40); WHITE BLOOD CELL COUNT 8.9 /CUMM (4.8-10.8)
[2016-06-13] VITALS: BP 118/60
[2016-06-13 05:45] LABS: ABSOLUTE BASOPHIL COUNT 0 /CUMM (0.0-0.2); ABSOLUTE EOSINOPHIL COUNT 0 /CUMM (0.0-0.7); ABSOLUTE GRANULOCYTE CT 7.6 /CUMM (1.4-6.5); ABSOLUTE LYMPH COUNT 1.5 /CUMM (1.2-3.4); ABSOLUTE MONOCYTE COUNT 0 /CUMM (0.10-0.60); BASOPHIL % 0.1 % (0.0-2.0); EOSINOPHIL % 0.5 % (0-5); GRANULOCYTE % 83.1 % (42.2-75.2); HEMATOCRIT 23.3 % (37-47); MEAN CORPUSCULAR HGB 28.3 PG (27.0-31.0); MEAN CORPUSCULAR HGB CONC 33.4 G/DL (33.0-37.0); MEAN CORPUSCULAR VOLUME 84.6 FL (81.0-99.0); MEAN PLATELET VOLUME 9.5 FL (7.4-10.4); PLATELET COUNT 141 /CUMM (130-400); RBC DISTRIBUTION WIDTH 14.9 % (11.5-14.5); RED BLOOD CELL CT 2.75 /CUMM (4.20-5.40); WHITE BLOOD CELL COUNT 9.1 /CUMM (4.8-10.8)
[2016-06-13 08:00] VITALS: BP 95/46
--- NOTE | 2016-06-13 08:12 | RADIOLOGY REPORT ---
EXAMINATION: XR PORTABLE CHEST CLINICAL INFORMATION: Intubated. Check placement. COMPARISON: CXR from 08/12/2016 TECHNIQUE: Portable AP view of the chest was obtained. FINDINGS: The endotracheal tube is located 5 cm above the marli. The enteric tube extends below the diaphragm, into the stomach, and beyond the [id number]. Similar appearance of the large cardiac silhouette, perihilar pulmonary edema and small pleural effusions. The bibasilar opacity likely represents a combination of the effusions and atelectasis. There are old fractures of several right lateral ribs. No pneumothorax or other interval significant change compared to the prior radiograph. IMPRESSION: 1. Endotracheal tube is in satisfactory position at 5 cm above the marli. 2. Persistent pulmonary edema with small pleural effusions and bibasilar atelectasis -- similar in appearance compared to 06/12/2016.
--- NOTE | 2016-06-13 08:25 | PN- Resident CRCU ---
Subjective HPI/CRCU Issues: Pt still intubated, not breathing over the vent. Unconscious NOT on sedation. Pupils fixed and dilated. I called neurology service this morning for a consult to declare brain once pt warms up. Still on dopa and levo, with 100ml/hr of NS. fluids was increased due to poor urine output and worsening kidney functions on last night's pm lab. noted drop in hb from 9.3 to 7.8, platelet 209 to 141, wbc 15.1 to 9.1, could be dilutional, but worrisome for DIC. FSP > 40, and d dimer > 5250. PT and PTT not that elevated, could be due to shock liver. Her BS was in > 500s yesterday, so she was started on insulin drip, that has been discontinued. BS this am in the 200s. While she was being rewarmed, she developed transient atrial fibrillation, with drop in sytolic BP to 40, that resolved to 119 with IVF. her belly seems distended and more firm today than yesterday. Await completion of rewarming for further plans. Will also discuss goals of care with family. 24 Hour Events: heart rate 70-90, sr, afib systolic bc 98/121, diastolic 57/88 except one time BP dropped to systolic 40. Objective Vital Signs & I&O Last 8 Hrs of Vitals and I&O: Intake & Output 06/13 1600 06/13 0800 06/13 0000 Intake Total 2269 1599 Output Total 260 350 Balance 2008 1249 Intake, IV 2269 1569 Intake, Oral 0 Intake, Tube 30 Irrigant Number 0 0 Bowel Movements Output, 75 50 Gastric Drainage Output, Urine 185 300 Patient 73.142 kg Weight Laboratory Tests 06/13 06/13 0850 0500 Chemistry Sodium (137 - 145 mmol/L) 134 L Potassium (3.5 - 5.1 mmol/L) 4.0 Chloride (98 - 107 mmol/L) 110 H Carbon Dioxide (22 - 30 mmol/L) 13 L Anion Gap (5 - 16) 12 BUN (7 - 17 mg/dL) 46 H Creatinine (0.5 - 1.0 mg/dL) 3.2 H Estimated GFR (>60 ml/min) 14 L Glucose (65 - 99 mg/dL) 273 H Calcium (8.4 - 10.2 mg/dL) 6.8 L Phosphorus (2.5 - 4.5 mg/dL) 5.8 H Magnesium (1.6 - 2.3 mg/dL) 1.6 Total Bilirubin (0.2 - 1.3 mg/dL) 0.6 AST (14 - 36 U/L) 119 H ALT (9 - 52 U/L) 114 H Albumin (3.5 - 5.0 g/dL) 2.0 L Coagulation PT (9.4 - 12.5 SEC) 14.8 H INR (0.90 - 1.19) 1.41 H APTT (25 - 37 SEC) 38 H Fibrinogen Activity (200 - 393 MG/DL) 507 H Fibrin Degrad Products (< 10 ug/ml) > 40 ug/ml H D-Dimer (70 - 232 ng/ml) > 5250 H Hematology CBC w Diff MAN DIFF ORDERED WBC (4.8 - 10.8 /CUMM) 9.1 RBC (4.20 - 5.40 /CUMM) 2.75 L Hgb (12.0 - 16.0 G/DL) 7.8 L Hct (37 - 47 %) 23.3 L MCV (81.0 - 99.0 FL) 84.6 MCH (27.0 - 31.0 PG) 28.3 RDW (11.5 - 14.5 %) 14.9 H Plt Count (130 - 400 /CUMM) 141 MPV (7.4 - 10.4 FL) 9.5 Gran % (42.2 - 75.2 %) 83.1 H Lymphocytes % (20.5 - 51.1 %) 15.9 L Monocytes % (1.7 - 9.3 %) 0.4 L Eosinophils % (0 - 5 %) 0.5 Basophils % (0.0 - 2.0 %) 0.1 Absolute Granulocytes (1.4 - 6.5 /CUMM) 7.6 H Segmented Neutrophils (42.2 - 75.2 %) 76 H Band Neutrophils (0.0 - 5.0 %) 9 H Absolute Lymphocytes (1.2 - 3.4 /CUMM) 1.5 Lymphocytes (20.5 - 51.1 %) 13 L Monocytes (1.7 - 9.3 %) 2 Absolute Monocytes (0.10 - 0.60 /CUMM) 0 L Absolute Eosinophils (0.0 - 0.7 /CUMM) 0 Absolute Basophils (0.0 - 0.2 /CUMM) 0 Platelet Estimate (ADEQUATE) ADEQUATE Polychromasia 1+ Poikilocytosis 3+ Ovalocytes 1+ Chiqui Cells 2+ Elliptocytes FEW PUBS MCHC (33.0 - 37.0 G/DL) 33.4 Other Body Source Fld Total RBCs Counted (%) 100 06/12 06/12 06/12 2230 2204 1849 Chemistry Sodium (137 - 145 mmol/L) 132 L Potassium (3.5 - 5.1 mmol/L) 4.4 Chloride (98 - 107 mmol/L) 106 Carbon Dioxide (22 - 30 mmol/L) 13 L Anion Gap (5 - 16) 13 BUN (7 - 17 mg/dL) 48 H Creatinine (0.5 - 1.0 mg/dL) 3.0 H Estimated GFR (>60 ml/min) 15 L Glucose (65 - 99 mg/dL) 488 H Calcium (8.4 - 10.2 mg/dL) 7.0 L Phosphorus (2.5 - 4.5 mg/dL) 5.0 H Magnesium (1.6 - 2.3 mg/dL) 1.7 Total Bilirubin (0.2 - 1.3 mg/dL) 0.6 AST (14 - 36 U/L) 156 H ALT (9 - 52 U/L) 135 H Troponin I (< 0.11 ng/ml) Cancelled 0.57 *H Albumin (3.5 - 5.0 g/dL) 2.1 L Hematology CBC w Diff NO MAN DIFF REQ WBC (4.8 - 10.8 /CUMM) 8.9 RBC (4.20 - 5.40 /CUMM) 3.05 L Hgb (12.0 - 16.0 G/DL) 8.5 L Hct (37 - 47 %) 25.8 L MCV (81.0 - 99.0 FL) 84.6 MCH (27.0 - 31.0 PG) 28.0 RDW (11.5 - 14.5 %) 14.8 H Plt Count (130 - 400 /CUMM) 160 MPV (7.4 - 10.4 FL) 8.7 Gran % (42.2 - 75.2 %) 79.4 H Lymphocytes % (20.5 - 51.1 %) 18.7 L Monocytes % (1.7 - 9.3 %) 1.8 Eosinophils % (0 - 5 %) 0 Basophils % (0.0 - 2.0 %) 0.1 Absolute Granulocytes (1.4 - 6.5 /CUMM) 7.0 H Absolute Lymphocytes (1.2 - 3.4 /CUMM) 1.7 Absolute Monocytes (0.10 - 0.60 /CUMM) 0.2 Absolute Eosinophils (0.0 - 0.7 /CUMM) 0 Absolute Basophils (0.0 - 0.2 /CUMM) 0 PUBS MCHC (33.0 - 37.0 G/DL) 33.0 06/12 06/12 1849 1312 Chemistry Sodium (137 - 145 mmol/L) 134 L 134 L Potassium (3.5 - 5.1 mmol/L) 4.7 4.6 Chloride (98 - 107 mmol/L) 109 H 109 H Carbon Dioxide (22 - 30 mmol/L) 13 L 15 L Anion Gap (5 - 16) 13 10 BUN (7 - 17 mg/dL) 48 H 48 H Creatinine (0.5 - 1.0 mg/dL) 3.0 H 2.8 H Estimated GFR (>60 ml/min) 15 L 16 L Glucose (65 - 99 mg/dL) 530 *H 546 *H Lactic Acid (0.7 - 2.1 mmol/L) 2.1 Calcium (8.4 - 10.2 mg/dL) 7.3 L 7.5 L Phosphorus (2.5 - 4.5 mg/dL) 4.7 H 3.8 Magnesium (1.6 - 2.3 mg/dL) 1.8 1.8 Total Bilirubin (0.2 - 1.3 mg/dL) 0.7 0.7 AST (14 - 36 U/L) 161 H 202 H ALT (9 - 52 U/L) 128 H 150 H Troponin I (< 0.11 ng/ml) 0.70 *H Albumin (3.5 - 5.0 g/dL) 2.2 L 2.4 L Hematology CBC w Diff NO MAN DIFF REQ WBC (4.8 - 10.8 /CUMM) 12.2 H RBC (4.20 - 5.40 /CUMM) 3.30 L Hgb (12.0 - 16.0 G/DL) 9.1 L Hct (37 - 47 %) 27.9 L MCV (81.0 - 99.0 FL) 84.5 MCH (27.0 - 31.0 PG) 27.7 RDW (11.5 - 14.5 %) 15.1 H Plt Count (130 - 400 /CUMM) 200 MPV (7.4 - 10.4 FL) 9.0 Gran % (42.2 - 75.2 %) 78.4 H Lymphocytes % (20.5 - 51.1 %) 19.7 L Monocytes % (1.7 - 9.3 %) 1.8 Eosinophils % (0 - 5 %) 0 Basophils % (0.0 - 2.0 %) 0.1 Absolute Granulocytes (1.4 - 6.5 /CUMM) 9.6 H Absolute Lymphocytes (1.2 - 3.4 /CUMM) 2.4 Absolute Monocytes (0.10 - 0.60 /CUMM) 0.2 Absolute Eosinophils (0.0 - 0.7 /CUMM) 0 Absolute Basophils (0.0 - 0.2 /CUMM) 0 PUBS MCHC (33.0 - 37.0 G/DL) 32.8 L Vital Signs Date Time Temp Pulse Resp B/P Pulse O2 O2 Flow FiO2 Ox Delivery Rate 06/13 1115 50 /16 0814 81 95/46 /16 0805 60 /16 0540 60 /16 0400 97 Ventilator 60% /16 0342 60 /16 0305 93.0 75 16 98/42 /16 0304 93.0 75 16 98/42 /16 0050 60 03/16 0000 97 Ventilator 60% /16 0000 91.5 75 16 118/60 97 Ventilator 60% 03/15 2347 91.5 75 16 118/60 03/15 2224 78 113/48 03/15 2212 60 /15 2000 96 Ventilator 60% /15 1916 60 03/15 1755 80 116/62 03/15 1616 60 03/15 1600 92.1 80 16 116/62 96 Ventilator 60% 03/15 1600 95 Ventilator 60% 03/15 1407 60 03/15 1200 94 Ventilator 60% Exam General Appearance: unconscious without sedation Head: atraumatic Respiratory: normal breath sounds Cardiovascular: regular rate/rhythm Gastrointestinal: normal bowel sounds, soft Extremities: no edema Current Medications: Current Medications Sig/Katy Start time Last Medication Dose Route Stop Time Status Admin Acetaminophen 1,000 MG Q12P PRN 06/11 2330 AC IV Ampicillin Sodium/ 1,500 MG Q6 06/11 2359 AC 06/13 Sulbactam Sodium IV 1147 Sodium Chloride 100 ML Artificial Tears 2 GTT 4 TIMES/DAY 06/12 1400 AC 06/13 OPH 1000 Dopamine HCl 400 MG Q5H 06/12 0730 AC 06/13 Dextrose/Water 500 ML IV 0814 Heparin Sodium 5,000 UNIT Q8 06/11 2313 DC 06/13 (Porcine) SC 0647 Insulin Aspart 10 UNITS ONCE ONE 06/12 2115 DC 06/12 SC 06/12 2116 2116 Insulin Human Regular 0 Q6 06/13 1200 DC SC Insulin Human Regular 0 Q6 06/13 0645 AC 06/13 SC 1147 Insulin Human Regular 100 UNIT Q24H 06/12 2215 DC 06/12 Sodium Chloride 100 ML IV 2248 Insulin Human Regular 0 Q6 06/12 0047 DC 06/12 SC 1921 Norepinephrine 8 MG Q12H 06/12 0300 AC 06/13 Sodium Chloride 250 ML IV 0825 Pantoprazole Sodium 40 MG DAILY 06/11 2330 AC 06/13 IV 1000 Sodium Chloride 500 ML BOLUS ONE 06/13 0515 DC 06/13 IV 06/13 0614 0519 Sodium Chloride 1,000 ML Q20H 06/12 1000 AC 06/13 IV 0646 Vasopressin 40 UNITS .STK-MED ONE 06/12 2228 DC IM 06/12 2229 Impression/Plan Impression/Problem List Impression: 81-year-old woman with PMH of insulin dependent diabetes mellitus, hyperlipidemia, hypertension, chronic kidney disease, gout, neuropathy, questionable congestive heart failure. Presented to the emergency department status post cardiac arrest at home on 06/11/16. Upon presentation, she was intubated, with low heart rate and blood pressure, thought to be due to cardiogenic shock, requiring pacer (now off) and pressure support dopamine and levophed. CT also revealed anoxic brain injury with dilated pupils that are nonreactive. Family aware that prognosis is guarded but still would like aggressive measures. Currently on hypothermia protocol. There were marked metabolic derangements, including but not limited to; hyperkalemia, hypermagnesiumia, hyperphospatemia, metabolic acidosis, lactic acidosis, TANNER on CKD, transaminitis, leukocytosis, anemia, positive troponin. Will again discuss with family the guarded prognosis and goals of care. Kirby day 3 Mechanically ventilated day 3 OG tube day 3 Central line day 3 Pt admited to ICU with the following problem list: # Acute respiratory failure on mechanical ventilation # Cardiogenic shock sp cardiac arrest # CHF # Anoxic brain injury sp cardiac arrest # TANNER on CKD most likely due to hypotension # Metabolic acidosis # Hyperkalemia (resolved) # Transaminitis most likely due to shock liver # Leukocytosis most likely due to aspiration # Possible DIC? Respiratory # Acute respiratory failure on mechanical ventilation - ABG initially 7.23//99/11, last ABG 7.4///97%. * She is mechanically ventilated with AC/16/60%/5 * Daily CXR while intubated * ABG at noon Cardiovascular # Cardiogenic shock sp cardiac arrest - As per H&P, pt had cardiac arrest at home and received a total of 11mg of epinephrine, intubated on the field. She was thought to be in cardiogenic shock with low heart rate and blood pressure, for which dopamine was started. * Continue dopamine and levophed to maintain MAP > 65, and CVP 8-12. Consider adding rg. * Rewarming process ongoing * Serial EKG and trops. Max tro 0.70, now trended down * Monitor urine output closely * Follow echocardiogram * Appreciate cardiology consult * IV protonix for GI ppx * Continue NS at 100ml/hr * Bolus as needed for low blood pressure # CHF - proBNP 14,000 - CXR shows pulmonary edema Neurology # Anoxic brain injury sp cardiac arrest - CT head showed anoxic brain injury - Unconscious without sedation, no gag reflex, fixed dilated pupil * Determine brain after rewarming completed (at least 96 degrees fahrenheit) * Neurology has been consulted Metabolic # TANNER on CKD (diabetic nephropathy) most likely due to hypotension - Her baseline serum creatinine has run between 2.18-2.5 mg/dL. - On admission, BUN 45 high, creatinine 2.6 high * Appreciate renal input * Monitor urine output closely. * Currently oligouric with dilute urine. Watch out of polyuria that would suggest herniation due to cerebral ischemia. * Hold off hemodialysis # Metabolic acidosis most likely due to hypotension - AG 21 to 15. - Lactic acid 3.7 --> 2.1 * Continue IVF as above # Hyperkalemia (resolved, now 4) - K was 7.7 on admission, given calcium gluconate, insulin, dextrose, now K normal # Transaminitis most likely due to shock liver - AST 235 --> 267 - AST 141 --> 144 # Magnesium 2.8 H --> 2.2 --> 1.6 # Phosphorus 8.7 H --> 3.9 --> 5.8H Infectious disease # Aspiration PNA? - On admission, leukocytosis with WBC 18.7 with bands, started on IV unasyn for possible aspiration PNA - flu negative * On IV unasyn day #3. WBC now 9.1 * Follow BC X 2 , Endocrinology # IDDM - Glucose in the 200s * Insulin NPO sliding scale Hematology # DIC? - Noted drop in hb from 9.3 to 7.8, platelet 209 to 141, wbc 15.1 to 9.1, could be dilutional, but worrisome for DIC. - FSP > 40, and d dimer > 5250. PT and PTT not that elevated, could be due to shock liver. * sc heparin discontinued Diet: NPO DVT ppx: alps FULL CODE Problem List: 1. Cardiac arrest Pain Ratin Tomorrow's Labs & Rationales: icu bundle cbc for metabolic derangement, possible dic Plan DVT/Prophylaxis: mechanical
--- NOTE | 2016-06-13 09:34 | PN- CRCU ---
Subjective HPI/Critical Care Issues: The patient remains unresponsive. She has no purposeful movements. She remains off sedation. She continues to undergo the rewarming process. Her renal function continues to worsen. Her hemoglobin has dropped to 7.8. No bleeding has been reported. There were no oevernight events reported by staff. Objective Current Medications: Current Medications Sig/Katy Start time Last Medication Dose Route Stop Time Status Admin Acetaminophen 1,000 MG Q12P PRN 06/11 2330 AC IV Ampicillin Sodium/ 1,500 MG Q6 06/11 2359 AC 06/13 Sulbactam Sodium IV 0647 Sodium Chloride 100 ML Artificial Tears 2 GTT 4 TIMES/DAY 06/12 1400 AC 06/12 OPH 2117 Dextrose/Sodium 1,000 ML Q6H 06/11 2345 DC 06/12 Chloride IV 0631 Dopamine HCl 400 MG Q5H 06/12 0730 AC 06/13 Dextrose/Water 500 ML IV 0814 Heparin Sodium 5,000 UNIT Q8 06/11 2313 AC 06/13 (Porcine) SC 0647 Insulin Aspart 10 UNITS ONCE ONE 06/12 2115 DC 06/12 SC 06/12 2116 2116 Insulin Human Regular 0 Q6 06/13 1200 DC SC Insulin Human Regular 0 Q6 06/13 0645 AC 06/13 SC 0646 Insulin Human Regular 100 UNIT Q24H 06/12 2215 DC 06/12 Sodium Chloride 100 ML IV 2248 Insulin Human Regular 0 Q6 06/12 0047 DC 06/12 SC 1921 Norepinephrine 8 MG Q12H 06/12 0300 AC 06/12 Sodium Chloride 250 ML IV 2347 Pantoprazole Sodium 40 MG DAILY 06/11 2330 AC 06/12 IV 1107 Sodium Chloride 500 ML BOLUS ONE 06/13 0515 DC 06/13 IV 06/13 0614 0519 Sodium Chloride 1,000 ML Q20H 06/12 1000 AC 06/13 IV 0646 Vasopressin 40 UNITS .STK-MED ONE 06/12 222 DC IM 06/12 2228 Vital Signs & I&O Last 24 Hrs of Vitals and I&O: Vital Signs Date Time Temp Pulse Resp B/P Pulse O2 O2 Flow FiO2 Ox Delivery Rate 06/13 0814 81 95/46 06/13 0540 60 06/13 0400 97 Ventilator 60% 06/13 0342 60 06/13 0305 93.0 75 16 98/42 06/13 0304 93.0 75 16 98/42 / 0050 60 /16 0000 97 Ventilator 60% /16 0000 91.5 75 16 118/60 97 Ventilator 60% 03/15 2347 91.5 75 16 118/60 /15 2224 78 113/48 /15 2212 60 / 2000 96 Ventilator 60% / 1916 60 /15 1755 80 116/62 /15 1616 60 /15 1600 92.1 80 16 116/62 96 Ventilator 60% 06/12 1600 95 Ventilator 60% /15 1407 60 /15 1200 94 Ventilator 60% 06/12 1113 60 Intake & Output 06/13 1600 06/13 0800 06/13 0000 Intake Total 2269 1599 Output Total 260 350 Balance 2008 1249 Intake, IV 2269 1569 Intake, Oral 0 Intake, Tube 30 Irrigant Number 0 0 Bowel Movements Output, 75 50 Gastric Drainage Output, Urine 185 300 Patient 161 lb Weight Exam General Appearance: intubated, unresponsive Head: atraumatic, normal appearance Neck: supple Respiratory: no respiratory distress, lungs clear Cardiovascular: regular rate/rhythm Abdomen: non-tender, mild distention, bowel sounds quiet Extremities: no edema Skin: intact, normal color, warm/dry Results Last 24 Hrs of Lab Results: Laboratory Tests 06/13/16 0850: PT Pending, INR Pending, APTT Pending, Fibrinogen Activity Pending, Fibrin Degrad Products Pending, D-Dimer Pending 06/13/16 0500: Anion Gap 12, Estimated GFR 14 L, Glucose 273 H, Calcium 6.8 L, Phosphorus 5.8 H, Magnesium 1.6, Total Bilirubin 0.6, AST 119 H, ALT 114 H, Albumin 2.0 L, CBC w Diff MAN DIFF ORDERED, RBC 2.75 L, MCV 84.6, MCH 28.3, RDW 14.9 H, MPV 9.5, Gran % 83.1 H, Lymphocytes % 15.9 L, Monocytes % 0.4 L, Eosinophils % 0.5, Basophils % 0.1, Absolute Granulocytes 7.6 H, Segmented Neutrophils 76 H, Band Neutrophils 9 H, Absolute Lymphocytes 1.5, Lymphocytes 13 L, Monocytes 2, Absolute Monocytes 0 L, Absolute Eosinophils 0, Absolute Basophils 0, Platelet Estimate ADEQUATE, Polychromasia 1+, Poikilocytosis 3+, Ovalocytes 1+, Tol[place]on Cells 2+, Elliptocytes FEW, PUBS MCHC 33.4, Fld Total RBCs Counted 100 06/12/162229: Troponin I Cancelled 06/12/162203: Anion Gap 13, Estimated GFR 15 L, Glucose 488 H, Calcium 7.0 L, Phosphorus 5.0 H, Magnesium 1.7, Total Bilirubin 0.6, AST 156 H, ALT 135 H, Albumin 2.1 L, CBC w Diff NO MAN DIFF REQ, RBC 3.05 L, MCV 84.6, MCH 28.0, RDW 14.8 H, MPV 8.7, Gran % 79.4 H, Lymphocytes % 18.7 L, Monocytes % 1.8, Eosinophils % 0, Basophils % 0.1, Absolute Granulocytes 7.0 H, Absolute Lymphocytes 1.7, Absolute Monocytes 0.2, Absolute Eosinophils 0, Absolute Basophils 0, PUBS MCHC 33.0 06/12/16 184: Troponin I 0.57 *H 06/12/16 1849: Anion Gap 13, Estimated GFR 15 L, Glucose 530 *H, Calcium 7.3 L, Phosphorus 4.7 H, Magnesium 1.8, Total Bilirubin 0.7, AST 161 H, ALT 128 H, Albumin 2.2 L 06/12/16 1312: Anion Gap 10, Estimated GFR 16 L, Glucose 546 *H, Lactic Acid 2.1, Calcium 7.5 L, Phosphorus 3.8, Magnesium 1.8, Total Bilirubin 0.7, AST 202 H, ALT 150 H, Troponin I 0.70 *H, Albumin 2.4 L, CBC w Diff NO MAN DIFF REQ, RBC 3.30 L, MCV 84.5, MCH 27.7, RDW 15.1 H, MPV 9.0, Gran % 78.4 H, Lymphocytes % 19.7 L, Monocytes % 1.8, Eosinophils % 0, Basophils % 0.1, Absolute Granulocytes 9.6 H, Absolute Lymphocytes 2.4, Absolute Monocytes 0.2, Absolute Eosinophils 0, Absolute Basophils 0, PUBS MCHC 32.8 L 06/12/16 1100: pH 7.32 L, pCO2 23 L, pO2 91, HCO3 12 L, ABG O2 Sat (Measured) 96.0, P-50 ( Temp Corrected) N, Carboxyhemoglobin 0.1 L, O2 Concentration % .60, Respiration Rate 16, O2 Delivery Method VENT, Vent Mode A/C, Expiratory Pressure 5, Tidal Volume 500, Phlebotomy Draw Site RIGHT RADIAL Impression/Plan Impression/Plan Impression/Plan: 1. Status post asystolic cardiac arrest. 2. Anoxic brain injury - the patient's pupils are fixed and dilated, she remains unresponsive off sedation. CT brain shows riding's consistent with significant anoxia. She remains on the hypothermia protocol. 3. Leukocytosis, improved. 4. Acute on chronic kidney injury. 5. Elevated transaminases, likely secondary to shock liver. 6. Diabetes with hyperglycemia. 7. Acute respiratory failure, on mechanical ventilation. 8. Congestive heart failure, with elevated proBNP. 9. Progressive anemia without evidence of bleeding. Recommendations: * Titrate oxygen down to keep saturations greater than 92%. * Decrease respiratory rate to 12 breaths per minute. * Continue dopamine and Levophed to maintain systolic blood pressure greater than 65 mmHg. * Continue neuro checks. * Complete hypothermia protocol. * Continue insulin drip for BS control. * Continue empiric IV Unasyn, will follow up cultures. * IV fluid to normal saline at 50 ML per hour. * Monitor strict I's and O's. * Continue ventilator bundle - DVT/GI prophylaxis. * Follow up neurology input. * The patient remains critically ill. We will discuss with patient's family later today when they arrived.
[2016-06-13 10:51] LABS: PT 14.8 SEC (9.4-12.5); PTT 38 SEC (25-37)
--- NOTE | 2016-06-13 10:53 | PN- Nephrology ---
Assessment/Plan Assessment: 1. Acute kidney injury status post cardiac arrest. She is oligo-anuric. There is no acute indication for hemodialysis here. 2. Chronic kidney disease. She has a history of hypertension and diabetes. 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 She has not had nephrotic range proteinuria however. Her baseline serum creatinine has run between 2.18-2.5 mg/dL. That would suggest significant underlying chronic kidney disease. 3. Gout 4. Diabetes mellitus 5. 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 Currently on the hypothermia protocol. Given the CT findings, suspect that she will not recover given that background, would not consider dialysis should the need arise. 6. Hyperkalemia. Now resolved. Likely reflected issues with her kyung-arrest period. Her most recent potassiums as an outpatient have been normal. She was on irbesartan as an outpatient. Suggestion: 1. No acute indication for dialysis. Given her current neurologic state, dialysis would not be appropriate. 2. Will continue to follow Subjective Subjective: The patient remains unresponsive. She remains on pressors. Review of Systems: Unobtainable Objective Vital Signs and I&Os Vital Signs Date Time Temp Pulse Resp B/P Pulse O2 O2 Flow FiO2 Ox Delivery Rate 06/13 0814 81 95/46 / 0805 60 / 0540 60 06/13 0400 97 Ventilator 60% 06/13 0342 60 /16 0305 93.0 75 16 98/42 /16 0304 93.0 75 16 98/42 /16 0050 60 03/16 0000 97 Ventilator 60% / 0000 91.5 75 16 118/60 97 Ventilator 60% /15 2347 91.5 75 16 118/60 /15 2224 78 113/48 / 2212 60 06/13 1999 96 Ventilator 60% /15 1916 60 /15 1755 80 116/62 /15 1616 60 /15 1600 92.1 80 16 116/62 96 Ventilator 60% /15 1600 95 Ventilator 60% 03/15 1407 60 /15 1200 94 Ventilator 60% /15 1113 60 Intake & Output 06/13 1600 06/13 0400 06/12 1600 06/12 0400 06/11 1600 06/11 0400 Intake Total 2269 1599 1621 1999 Output Total 260 350 650 Balance 2008 1301 691 0300 Intake, IV 2269 1569 1551 1999 Intake, Oral 0 Intake, Other 70 Intake, Tube 30 Irrigant Number 0 0 0 Bowel Movements Output, 75 50 350 Gastric Drainage Output, Urine 185 300 300 Patient 161 lb 154 lb 154 lb Weight Physical Exam: General Appearance: well developed/nourished, no apparent distress, intubated, unresponsive Head: atraumatic, normal appearance, ET tube in place Eyes: Bilateral: other (fixed and dilated pupils). Neck: normal inspection, supple, trachea mid line Respiratory: normal breath soundsanteriorly Cardiovascular: regular rate/rhythm, edema Gastrointestinal: few bowel sounds, soft, non-tender Extremities: normal inspection, no edema Neurologic/Psych: obtunded, unresponsive Skin: intact, normal color Current Medications: Current Medications Sig/Katy Start time Last Medication Dose Route Stop Time Status Admin Acetaminophen 1,000 MG Q12P PRN 06/11 2330 IV Ampicillin Sodium/ 1,500 MG Q6 06/11 2359 06/13 Sulbactam Sodium IV 0647 Sodium Chloride 100 ML Artificial Tears 2 GTT 4 TIMES/DAY 06/12 1400 AC 06/13 OPH 1000 Dopamine HCl 400 MG Q5H 06/12 0730 06/13 Dextrose/Water 500 ML IV 0814 Heparin Sodium 5,000 UNIT Q8 06/11 2313 06/13 (Porcine) [place] 0647 Insulin Aspart 10 UNITS ONCE ONE 06/12 2114 [place] 06/12 [place] 06/12 211 2116 Insulin Human Regular 0 Q6 06/13 1200 [facility] Insulin Human Regular 0 Q6 06/13 0645 06/13 [place] 0646 Insulin Human Regular 100 UNIT Q24H 06/12 2215 [place] 06/12 Sodium Chloride 100 ML IV 2248 Insulin Human Regular 0 Q6 06/12 0047 [place] 06/12 [place] 1921 Norepinephrine 8 MG Q12H 06/12 0300 06/13 Sodium Chloride 250 ML IV 0825 Pantoprazole Sodium 40 MG DAILY 06/11 2330 06/13 IV 1000 Sodium Chloride 500 ML BOLUS ONE 06/13 0515 [place] 06/13 IV 06/13 0614 0519 Sodium Chloride 1,000 ML Q20H 06/12 1000 06/13 IV 0646 Vasopressin 40 UNITS .STK-MED ONE 06/13 2227 DC 06/12 222 Results Pertinent Lab Results: Laboratory Tests 06/13 06/13 08 0500 Chemistry Sodium (137 - 145 mmol/L) 134 L Potassium (3.5 - 5.1 mmol/L) 4.0 Chloride (98 - 107 mmol/L) 110 H Carbon Dioxide (22 - 30 mmol/L) 13 L Anion Gap (5 - 16) 12 BUN (7 - 17 mg/dL) 46 H Creatinine (0.5 - 1.0 mg/dL) 3.2 H Estimated GFR (>60 ml/min) 14 L Glucose (65 - 99 mg/dL) 273 H Calcium (8.4 - 10.2 mg/dL) 6.8 L Phosphorus (2.5 - 4.5 mg/dL) 5.8 H Magnesium (1.6 - 2.3 mg/dL) 1.6 Total Bilirubin (0.2 - 1.3 mg/dL) 0.6 AST (14 - 36 U/L) 119 H ALT (9 - 52 U/L) 114 H Albumin (3.5 - 5.0 g/dL) 2.0 L Coagulation PT (9.4 - 12.5 SEC) Pending INR (0.90 - 1.19) Pending APTT (25 - 37 SEC) Pending Fibrinogen Activity (200 - 393 MG/DL) Pending Fibrin Degrad Products (< 10 ug/ml) > 40 ug/ml H D-Dimer (70 - 232 ng/ml) Pending Hematology CBC w Diff MAN DIFF ORDERED WBC (4.8 - 10.8 /CUMM) 9.1 RBC (4.20 - 5.40 /CUMM) 2.75 L Hgb (12.0 - 16.0 G/DL) 7.8 L Hct (37 - 47 %) 23.3 L MCV (81.0 - 99.0 FL) 84.6 MCH (27.0 - 31.0 PG) 28.3 RDW (11.5 - 14.5 %) 14.9 H Plt Count (130 - 400 /CUMM) 141 MPV (7.4 - 10.4 FL) 9.5 Gran % (42.2 - 75.2 %) 83.1 H Lymphocytes % (20.5 - 51.1 %) 15.9 L Monocytes % (1.7 - 9.3 %) 0.4 L Eosinophils % (0 - 5 %) 0.5 Basophils % (0.0 - 2.0 %) 0.1 Absolute Granulocytes (1.4 - 6.5 /CUMM) 7.6 H Segmented Neutrophils (42.2 - 75.2 %) 76 H Band Neutrophils (0.0 - 5.0 %) 9 H Absolute Lymphocytes (1.2 - 3.4 /CUMM) 1.5 Lymphocytes (20.5 - 51.1 %) 13 L Monocytes (1.7 - 9.3 %) 2 Absolute Monocytes (0.10 - 0.60 /CUMM) 0 L Absolute Eosinophils (0.0 - 0.7 /CUMM) 0 Absolute Basophils (0.0 - 0.2 /CUMM) 0 Platelet Estimate (ADEQUATE) ADEQUATE Polychromasia 1+ Poikilocytosis 3+ Ovalocytes 1+ [place] Cells 2+ Elliptocytes FEW PUBS MCHC (33.0 - 37.0 G/DL) 33.4 Other Body Source Fld Total RBCs Counted (%) 100 06/12 06/12 06/12 2230 2204 1849 Chemistry Sodium (137 - 145 mmol/L) 132 L Potassium (3.5 - 5.1 mmol/L) 4.4 Chloride (98 - 107 mmol/L) 106 Carbon Dioxide (22 - 30 mmol/L) 13 L Anion Gap (5 - 16) 13 BUN (7 - 17 mg/dL) 48 H Creatinine (0.5 - 1.0 mg/dL) 3.0 H Estimated GFR (>60 ml/min) 15 L Glucose (65 - 99 mg/dL) 488 H Calcium (8.4 - 10.2 mg/dL) 7.0 L Phosphorus (2.5 - 4.5 mg/dL) 5.0 H Magnesium (1.6 - 2.3 mg/dL) 1.7 Total Bilirubin (0.2 - 1.3 mg/dL) 0.6 AST (14 - 36 U/L) 156 H ALT (9 - 52 U/L) 135 H Troponin I (< 0.11 ng/ml) Cancelled 0.57 *H Albumin (3.5 - 5.0 g/dL) 2.1 L Hematology CBC w Diff NO MAN DIFF REQ WBC (4.8 - 10.8 /CUMM) 8.9 RBC (4.20 - 5.40 /CUMM) 3.05 L Hgb (12.0 - 16.0 G/DL) 8.5 L Hct (37 - 47 %) 25.8 L MCV (81.0 - 99.0 FL) 84.6 MCH (27.0 - 31.0 PG) 28.0 RDW (11.5 - 14.5 %) 14.8 H Plt Count (130 - 400 /CUMM) 160 MPV (7.4 - 10.4 FL) 8.7 Gran % (42.2 - 75.2 %) 79.4 H Lymphocytes % (20.5 - 51.1 %) 18.7 L Monocytes % (1.7 - 9.3 %) 1.8 Eosinophils % (0 - 5 %) 0 Basophils % (0.0 - 2.0 %) 0.1 Absolute Granulocytes (1.4 - 6.5 /CUMM) 7.0 H Absolute Lymphocytes (1.2 - 3.4 /CUMM) 1.7 Absolute Monocytes (0.10 - 0.60 /CUMM) 0.2 Absolute Eosinophils (0.0 - 0.7 /CUMM) 0 Absolute Basophils (0.0 - 0.2 /CUMM) 0 PUBS MCHC (33.0 - 37.0 G/DL) 33.0 06/12 06/12 06/12 1849 1312 1100 Blood Gas pH (7.35 - 7.45 PH) 7.32 L pCO2 (35 - 45 TORR) 23 L pO2 (80 - 100 TORR) 91 HCO3 (21 - 28 MEQ/L) 12 L ABG O2 Sat (Measured) (>96.0 %) 96.0 P-50 (Temp Corrected) N Carboxyhemoglobin (1.5 - 5.0 %) 0.1 L O2 Concentration % .60 Respiration Rate (BPM) 16 O2 Delivery Method VENT Vent Mode A/C Expiratory Pressure (CMH2O/P) 5 Tidal Volume (CC) 500 Chemistry Sodium (137 - 145 mmol/L) 134 L 134 L Potassium (3.5 - 5.1 mmol/L) 4.7 4.6 Chloride (98 - 107 mmol/L) 109 H 109 H Carbon Dioxide (22 - 30 mmol/L) 13 L 15 L Anion Gap (5 - 16) 13 10 BUN (7 - 17 mg/dL) 48 H 48 H Creatinine (0.5 - 1.0 mg/dL) 3.0 H 2.8 H Estimated GFR (>60 ml/min) 15 L 16 L Glucose (65 - 99 mg/dL) 530 *H 546 *H Lactic Acid (0.7 - 2.1 mmol/L) 2.1 Calcium (8.4 - 10.2 mg/dL) 7.3 L 7.5 L Phosphorus (2.5 - 4.5 mg/dL) 4.7 H 3.8 Magnesium (1.6 - 2.3 mg/dL) 1.8 1.8 Total Bilirubin (0.2 - 1.3 mg/dL) 0.7 0.7 AST (14 - 36 U/L) 161 H 202 H ALT (9 - 52 U/L) 128 H 150 H Troponin I (< 0.11 ng/ml) 0.70 *H Albumin (3.5 - 5.0 g/dL) 2.2 L 2.4 L Hematology CBC w Diff NO MAN DIFF REQ WBC (4.8 - 10.8 /CUMM) 12.2 H RBC (4.20 - 5.40 /CUMM) 3.30 L Hgb (12.0 - 16.0 G/DL) 9.1 L Hct (37 - 47 %) 27.9 L MCV (81.0 - 99.0 FL) 84.5 MCH (27.0 - 31.0 PG) 27.7 RDW (11.5 - 14.5 %) 15.1 H Plt Count (130 - 400 /CUMM) 200 MPV (7.4 - 10.4 FL) 9.0 Gran % (42.2 - 75.2 %) 78.4 H Lymphocytes % (20.5 - 51.1 %) 19.7 L Monocytes % (1.7 - 9.3 %) 1.8 Eosinophils % (0 - 5 %) 0 Basophils % (0.0 - 2.0 %) 0.1 Absolute Granulocytes (1.4 - 6.5 /CUMM) 9.6 H Absolute Lymphocytes (1.2 - 3.4 /CUMM) 2.4 Absolute Monocytes (0.10 - 0.60 /CUMM) 0.2 Absolute Eosinophils (0.0 - 0.7 /CUMM) 0 Absolute Basophils (0.0 - 0.2 /CUMM) 0 PUBS MCHC (33.0 - 37.0 G/DL) 32.8 L Miscellaneous Phlebotomy Draw Site RIGHT RADIAL 06/12 06/12 06/12 06/12 0800 0800 0510 0400 Blood Gas pH (7.35 - 7.45 PH) 7.40 pCO2 (35 - 45 TORR) 20 L pO2 (80 - 100 TORR) 74 L HCO3 (21 - 28 MEQ/L) 13 L ABG O2 Sat (Measured) (>96.0 %) 97.0 P-50 (Temp Corrected) Y Carboxyhemoglobin (1.5 - 5.0 %) 0.3 L O2 Concentration % 60% Temperature (97.0 - 100.0 FARH) 88.0 L Respiration Rate (BPM) 16 O2 Delivery Method ESPRIT Vent Mode AC Expiratory Pressure (CMH2O/P) 5 Tidal Volume (CC) 500 Chemistry Lactic Acid (0.7 - 2.1 mmol/L) 3.4 H 3.7 H Troponin I (< 0.11 ng/ml) 0.66 *H Miscellaneous Phlebotomy Draw Site RIGHT RADIAL 06/12 06/12 0400 0209 Chemistry Sodium (137 - 145 mmol/L) 140 Potassium (3.5 - 5.1 mmol/L) 4.6 Chloride (98 - 107 mmol/L) 111 H Carbon Dioxide (22 - 30 mmol/L) 14 L Anion Gap (5 - 16) 15 BUN (7 - 17 mg/dL) 51 H Creatinine (0.5 - 1.0 mg/dL) 2.6 H Estimated GFR (>60 ml/min) 18 L Glucose (65 - 99 mg/dL) 370 H Lactic Acid (0.7 - 2.1 mmol/L) 3.2 H Calcium (8.4 - 10.2 mg/dL) 8.1 L Phosphorus (2.5 - 4.5 mg/dL) 3.9 Magnesium (1.6 - 2.3 mg/dL) 2.2 Total Bilirubin (0.2 - 1.3 mg/dL) 0.7 AST (14 - 36 U/L) 267 H ALT (9 - 52 U/L) 144 H Albumin (3.5 - 5.0 g/dL) 2.4 L Hematology CBC w Diff MAN DIFF ORDERED WBC (4.8 - 10.8 /CUMM) 15.1 H RBC (4.20 - 5.40 /CUMM) 3.29 L Hgb (12.0 - 16.0 G/DL) 9.3 L Hct (37 - 47 %) 28.1 L MCV (81.0 - 99.0 FL) 85.5 MCH (27.0 - 31.0 PG) 28.1 RDW (11.5 - 14.5 %) 15.2 H Plt Count (130 - 400 /CUMM) 209 MPV (7.4 - 10.4 FL) 8.8 Gran % (42.2 - 75.2 %) 84.5 H Lymphocytes % (20.5 - 51.1 %) 13.3 L Monocytes % (1.7 - 9.3 %) 2.0 Eosinophils % (0 - 5 %) 0 Basophils % (0.0 - 2.0 %) 0.2 Absolute Granulocytes (1.4 - 6.5 /CUMM) 12.8 H Segmented Neutrophils (42.2 - 75.2 %) 71 Band Neutrophils (0.0 - 5.0 %) 11 H Absolute Lymphocytes (1.2 - 3.4 /CUMM) 2.0 Lymphocytes (20.5 - 51.1 %) 13 L Monocytes (1.7 - 9.3 %) 4 Absolute Monocytes (0.10 - 0.60 /CUMM) 0.3 Absolute Eosinophils (0.0 - 0.7 /CUMM) 0 Absolute Basophils (0.0 - 0.2 /CUMM) 0 Metamyelocytes (0.0 - 1.0 %) 1 Platelet Estimate (ADEQUATE) ADEQUATE Normocytic RBCs VERIFIED Hypochromic-Microcytic 1+ PUBS MCHC (33.0 - 37.0 G/DL) 32.9 L Other Body Source Fld Total RBCs Counted (%) 100 06/12 06/12 0125 0100 Blood Gas pH (7.35 - 7.45 PH) 7.47 H pCO2 (35 - 45 TORR) 17 L pO2 (80 - 100 TORR) 235 H HCO3 (21 - 28 MEQ/L) 12 L ABG O2 Sat (Measured) (>96.0 %) 98.0 P-50 (Temp Corrected) Y Carboxyhemoglobin (1.5 - 5.0 %) 0.3 L O2 Concentration % 100% Temperature (97.0 - 100.0 FARH) 90.9 L Respiration Rate (BPM) 20 O2 Delivery Method ESPRIT Vent Mode AC Expiratory Pressure (CMH2O/P) 5 Tidal Volume (CC) 500 Miscellaneous Phlebotomy Draw Site RIGHT RADIAL Urines Urine Color (YEL,AMB,STR) YEL Urine Clarity (CLEAR) CLEAR Urine pH (5.0 - 8.0) 6.0 Ur Specific [place] (1.001 - 1.035) 1.020 Urine Protein (NEG,<30 MG/DL) 100 H Urine Ketones (NEG) NEG Urine Nitrite (NEG) NEG Urine Bilirubin (NEG) NEG Urine Urobilinogen (0.1 - 1.0 EU/dl) 0.2 Ur Leukocyte Esterase (NEG) NEG Ur Microscopic SEDIMENT EXAMINED Ur Epithelial Cells (NONE,FEW) RARE Urine Bacteria (NEG/NONE) RARE H Micro UA Comment NEGATIVE MICROSCOPIC Urine Hemoglobin (NEG) NEG Urine Glucose (N MG/DL) 250 H 06/12 06/11 06/11 0050 2303 2205 Blood Gas pH (7.35 - 7.45 PH) 7.23 *L pCO2 (35 - 45 TORR) 26 L pO2 (80 - 100 TORR) 99 HCO3 (21 - 28 MEQ/L) 11 L ABG O2 Sat (Measured) (>96.0 %) 96.0 P-50 (Temp Corrected) N Carboxyhemoglobin (1.5 - 5.0 %) 0.4 L O2 Concentration % 100% Respiration Rate (BPM) 20 O2 Delivery Method VENT Vent Mode AC Expiratory Pressure (CMH2O/P) 5 Tidal Volume (CC) 500 Pressure Support (CMH2O/P) 0 Chemistry Sodium (137 - 145 mmol/L) 141 142 Potassium (3.5 - 5.1 mmol/L) 6.2 *H 6.5 *H Chloride (98 - 107 mmol/L) 114 H 114 H Carbon Dioxide (22 - 30 mmol/L) 12 L 13 L Anion Gap (5 - 16) 15 15 BUN (7 - 17 mg/dL) 50 H 48 H Creatinine (0.5 - 1.0 mg/dL) 2.4 H 2.4 H Estimated GFR (>60 ml/min) 19 L 19 L Glucose (65 - 99 mg/dL) 177 H 178 H Calcium (8.4 - 10.2 mg/dL) 8.4 8.6 Phosphorus (2.5 - 4.5 mg/dL) 7.0 H 8.7 H Magnesium (1.6 - 2.3 mg/dL) 2.4 H 2.5 H Total Bilirubin (0.2 - 1.3 mg/dL) 0.7 0.6 AST (14 - 36 U/L) 265 H 235 H ALT (9 - 52 U/L) 141 H 141 H Troponin I (< 0.11 ng/ml) 0.23 *H Albumin (3.5 - 5.0 g/dL) 2.7 L 2.8 L Coagulation PT (9.4 - 12.5 SEC) 11.2 INR (0.90 - 1.19) 1.07 APTT (25 - 37 SEC) 33 Miscellaneous Phlebotomy Draw Site RIGHT BRACHIAL 06/12 2051 Chemistry Sodium (137 - 145 mmol/L) 143 Potassium (3.5 - 5.1 mmol/L) 7.7 *H Chloride (98 - 107 mmol/L) 113 H Carbon Dioxide (22 - 30 mmol/L) 9 *L Anion Gap (5 - 16) 21 H BUN (7 - 17 mg/dL) 45 H Creatinine (0.5 - 1.0 mg/dL) 2.6 H Estimated GFR (>60 ml/min) 18 L BUN/Creatinine Ratio (7 - 25 %) 17.3 Glucose (65 - 99 mg/dL) 312 H Calcium (8.4 - 10.2 mg/dL) 9.2 Magnesium (1.6 - 2.3 mg/dL) 2.8 H Troponin I (< 0.11 ng/ml) 0.04 Elo-[id number] Pept (<125 pg/mL) 26860 H Hematology CBC w Diff MAN DIFF ORDERED WBC (4.8 - 10.8 /CUMM) 18.7 H RBC (4.20 - 5.40 /CUMM) 3.22 L Hgb (12.0 - 16.0 G/DL) 8.9 L Hct (37 - 47 %) 28.5 L MCV (81.0 - 99.0 FL) 88.5 MCH (27.0 - 31.0 PG) 27.5 RDW (11.5 - 14.5 %) 15.4 H Plt Count (130 - 400 /CUMM) 255 MPV (7.4 - 10.4 FL) 9.5 Gran % (42.2 - 75.2 %) 65.7 Lymphocytes % (20.5 - 51.1 %) 30.1 Monocytes % (1.7 - 9.3 %) 3.8 Eosinophils % (0 - 5 %) 0.2 Basophils % (0.0 - 2.0 %) 0.2 Absolute Granulocytes (1.4 - 6.5 /CUMM) 12.3 H Segmented Neutrophils (42.2 - 75.2 %) 51 Band Neutrophils (0.0 - 5.0 %) 1 Absolute Lymphocytes (1.2 - 3.4 /CUMM) 5.6 H Lymphocytes (20.5 - 51.1 %) 44 Monocytes (1.7 - 9.3 %) 4 Absolute Monocytes (0.10 - 0.60 /CUMM) 0.7 H Absolute Eosinophils (0.0 - 0.7 /CUMM) 0 Absolute Basophils (0.0 - 0.2 /CUMM) 0 Platelet Estimate (ADEQUATE) ADEQUATE Normocytic RBCs VERIFIED Normochromic RBCs VERIFIED PUBS MCHC (33.0 - 37.0 G/DL) 31.1 L
--- NOTE | 2016-06-13 13:04 | PN- Cardiology ---
Subjective Subjective: No significant clinical change. Currently being weaned from cooling blanket Objective Vital Signs and I&Os Vital Signs Date Time Temp Pulse Resp B/P Pulse O2 O2 Flow FiO2 Ox Delivery Rate 06/13 1115 50 / 0814 81 95/46 06/13 0805 60 /16 0540 60 06/13 0400 97 Ventilator 60% 06/13 0342 60 06/13 0305 93.0 75 16 98/42 /16 0304 93.0 75 16 98/42 /16 0050 60 /16 0000 97 Ventilator 60% / 0000 91.5 75 16 118/60 97 Ventilator 60% 06/12 2347 91.5 75 16 118/60 06/12 2224 78 113/48 06/12 2212 60 06/12 2000 96 Ventilator 60% 06/12 1916 60 06/12 1755 80 116/62 15 1616 60 06/12 1600 92.1 80 16 116/62 96 Ventilator 60% 06/12 1600 95 Ventilator 60% 06/12 1407 60 Intake & Output 06/13 1600 06/13 0800 06/13 0000 06/12 1600 06/12 0800 06/12 0000 Intake Total 2269 1599 1621 2000 Output Total 260 350 650 Balance 2009 6946 328 8468 Intake, IV 2269 1569 1551 2000 Intake, Oral 0 Intake, Other 70 Intake, Tube 30 Irrigant Number 0 0 0 Bowel Movements Output, 75 50 350 Gastric Drainage Output, Urine 185 300 300 Patient 161 lb 154 lb 154 lb 140 lb Weight Physical Exam: General Appearance intubated, unresponsive, on multiple pressors HEENT fixed and dilated pupils bilaterally Neck JVP not appreciated, carotids normal bilaterally Cardiovascular Regular Rate, Normal S1, Normal S2, 1/6 systolic murmur left sternal border Lungs bilateral rhonchi with scattered crackles Abdomen Soft, No Masses, distended Extremities trace bilateral edema Current Medications: Current Medications Sig/Katy Start time Last Medication Dose Route Stop Time Status Admin Acetaminophen 1,000 MG Q12P PRN 06/11 2330 AC IV Ampicillin Sodium/ 1,500 MG Q6 06/11 2359 AC 06/13 Sulbactam Sodium IV 1147 Sodium Chloride 100 ML Artificial Tears 2 GTT 4 TIMES/DAY 06/12 1400 AC 06/13 OPH 1000 Dopamine HCl 400 MG Q5H 06/12 0730 AC 03/16 Dextrose/Water 500 ML IV 0814 Heparin Sodium 5,000 UNIT Q8 06/11 2313 DC 06/13 (Porcine) [place] 0647 Insulin Aspart 10 UNITS ONCE ONE 06/12 2114 DC 06/12 SC 06/12 Insulin Human Regular 0 Q6 06/13 1200 DC SC Insulin Human Regular 0 Q6 06/13 0645 AC 06/13 [place] 1147 Insulin Human Regular 100 UNIT Q24H 06/12 2215 DC 06/12 Sodium Chloride 100 ML IV 2248 Insulin Human Regular 0 Q6 06/12 0047 DC 06/12 [place] 1921 Norepinephrine 8 MG Q12H 06/12 0300 AC 06/13 Sodium Chloride 250 ML IV 0825 Pantoprazole Sodium 40 MG DAILY 06/11 2330 AC 06/13 IV 1000 Sodium Chloride 500 ML BOLUS ONE 06/13 0515 DC 06/13 IV 06/13 0614 0519 Sodium Chloride 1,000 ML Q20H 06/12 1000 AC 06/13 IV 0646 Vasopressin 40 UNITS .STK-MED ONE 06/12 2228 DC IM 06/12 222 Results Last 48 Hrs of Labs/Mics: Laboratory Tests 06/13/16 0850: PT 14.8 H, INR 1.41 H, APTT 38 H, Fibrinogen Activity 507 H, Fibrin Degrad Products > 40 ug/ml H, D-Dimer > 5250 H 06/13/16 0500: Anion Gap 12, Estimated GFR 14 L, Glucose 273 H, Calcium 6.8 L, Phosphorus 5.8 H, Magnesium 1.6, Total Bilirubin 0.6, AST 119 H, ALT 114 H, Albumin 2.0 L, CBC w Diff MAN DIFF ORDERED, RBC 2.75 L, MCV 84.6, MCH 28.3, RDW 14.9 H, MPV 9.5, Gran % 83.1 H, Lymphocytes % 15.9 L, Monocytes % 0.4 L, Eosinophils % 0.5, Basophils % 0.1, Absolute Granulocytes 7.6 H, Segmented Neutrophils 76 H, Band Neutrophils 9 H, Absolute Lymphocytes 1.5, Lymphocytes 13 L, Monocytes 2, Absolute Monocytes 0 L, Absolute Eosinophils 0, Absolute Basophils 0, Platelet Estimate ADEQUATE, Polychromasia 1+, Poikilocytosis 3+, Ovalocytes 1+, [place] Cells 2+, Elliptocytes FEW, PUBS MCHC 33.4, Fld Total RBCs Counted 100 03/15/17 2230: Troponin I Cancelled 06/12/164: Anion Gap 13, Estimated GFR 15 L, Glucose 488 H, Calcium 7.0 L, Phosphorus 5.0 H, Magnesium 1.7, Total Bilirubin 0.6, AST 156 H, ALT 135 H, Albumin 2.1 L, CBC w Diff NO MAN DIFF REQ, RBC 3.05 L, MCV 84.6, MCH 28.0, RDW 14.8 H, MPV 8.7, Gran % 79.4 H, Lymphocytes % 18.7 L, Monocytes % 1.8, Eosinophils % 0, Basophils % 0.1, Absolute Granulocytes 7.0 H, Absolute Lymphocytes 1.7, Absolute Monocytes 0.2, Absolute Eosinophils 0, Absolute Basophils 0, PUBS MCHC 33.0 06/12/16 184: Troponin I 0.57 *H 06/12/16 1849: Anion Gap 13, Estimated GFR 15 L, Glucose 530 *H, Calcium 7.3 L, Phosphorus 4.7 H, Magnesium 1.8, Total Bilirubin 0.7, AST 161 H, ALT 128 H, Albumin 2.2 L 06/12/16 1312: Anion Gap 10, Estimated GFR 16 L, Glucose 546 *H, Lactic Acid 2.1, Calcium 7.5 L, Phosphorus 3.8, Magnesium 1.8, Total Bilirubin 0.7, AST 202 H, ALT 150 H, Troponin I 0.70 *H, Albumin 2.4 L, CBC w Diff NO MAN DIFF REQ, RBC 3.30 L, MCV 84.5, MCH 27.7, RDW 15.1 H, MPV 9.0, Gran % 78.4 H, Lymphocytes % 19.7 L, Monocytes % 1.8, Eosinophils % 0, Basophils % 0.1, Absolute Granulocytes 9.6 H, Absolute Lymphocytes 2.4, Absolute Monocytes 0.2, Absolute Eosinophils 0, Absolute Basophils 0, PUBS MCHC 32.8 L 06/12/16 1100: pH 7.32 L, pCO2 23 L, pO2 91, HCO3 12 L, ABG O2 Sat (Measured) 96.0, P-50 ( Temp Corrected) N, Carboxyhemoglobin 0.1 L, O2 Concentration % .60, Respiration Rate 16, O2 Delivery Method VENT, Vent Mode A/C, Expiratory Pressure 5, Tidal Volume 500, Phlebotomy Draw Site RIGHT RADIAL 06/12/16 0800: Troponin I 0.66 *H 06/12/16 0800: Lactic Acid 3.4 H 06/12/16 0510: pH 7.40, pCO2 20 L, pO2 74 L, HCO3 13 L, ABG O2 Sat (Measured) 97.0, P-50 ( Temp Corrected) Y, Carboxyhemoglobin 0.3 L, O2 Concentration % 60%, Temperature 88.0 L, Respiration Rate 16, O2 Delivery Method ESPRIT, Vent Mode AC, Expiratory Pressure 5, Tidal Volume 500, Phlebotomy Draw Site RIGHT RADIAL 06/12/16 0400: Lactic Acid 3.7 H 06/12/16 0400: Anion Gap 15, Estimated GFR 18 L, Glucose 370 H, Calcium 8.1 L, Phosphorus 3.9, Magnesium 2.2, Total Bilirubin 0.7, AST 267 H, ALT 144 H, Albumin 2.4 L, CBC w Diff MAN DIFF ORDERED, RBC 3.29 L, MCV 85.5, MCH 28.1, RDW 15.2 H, MPV 8.8, Gran % 84.5 H, Lymphocytes % 13.3 L, Monocytes % 2.0, Eosinophils % 0, Basophils % 0.2, Absolute Granulocytes 12.8 H, Segmented Neutrophils 71, Band Neutrophils 11 H, Absolute Lymphocytes 2.0, Lymphocytes 13 L, Monocytes 4, Absolute Monocytes 0.3, Absolute Eosinophils 0, Absolute Basophils 0, Metamyelocytes 1, Platelet Estimate ADEQUATE, Normocytic RBCs VERIFIED, Hypochromic-Microcytic 1+, PUBS MCHC 32.9 L, Fld Total RBCs Counted 100 06/12/16 0209: Lactic Acid 3.2 H 06/12/16 0125: pH 7.47 H, pCO2 17 L, pO2 235 H, HCO3 12 L, ABG O2 Sat (Measured) 98.0, P-50 (Temp Corrected) Y, Carboxyhemoglobin 0.3 L, O2 Concentration % 100%, Temperature 90.9 L, Respiration Rate 20, O2 Delivery Method ESPRIT, Vent Mode AC, Expiratory Pressure 5, Tidal Volume 500, Phlebotomy Draw Site RIGHT RADIAL 06/12/16 0100: Urine Color YEL, Urine Clarity CLEAR, Urine pH 6.0, Ur Specific Wells 1.020, Urine Protein 100 H, Urine Ketones NEG, Urine Nitrite NEG, Urine Bilirubin NEG, Urine Urobilinogen 0.2, Ur Leukocyte Esterase NEG, Ur Microscopic SEDIMENT EXAMINED, Ur Epithelial Cells RARE, Urine Bacteria RARE H, Micro UA Comment NEGATIVE MICROSCOPIC, Urine Hemoglobin NEG, Urine Glucose 250 H 06/12/16 0050: Anion Gap 15, Estimated GFR 19 L, Glucose 177 H, Calcium 8.4, Phosphorus 7.0 H, Magnesium 2.4 H, Total Bilirubin 0.7, AST 265 H, ALT 141 H, Troponin I 0.23 *H, Albumin 2.7 L 06/11/16 2303: Anion Gap 15, Estimated GFR 19 L, Glucose 178 H, Calcium 8.6, Phosphorus 8.7 H, Magnesium 2.5 H, Total Bilirubin 0.6, AST 235 H, ALT 141 H, Albumin 2.8 L , PT 11.2, INR 1.07, APTT 33 06/11/16 2205: pH 7.23 *L, pCO2 26 L, pO2 99, HCO3 11 L, ABG O2 Sat (Measured) 96.0, P-50 ( Temp Corrected) N, Carboxyhemoglobin 0.4 L, O2 Concentration % 100%, Respiration Rate 20, O2 Delivery Method VENT, Vent Mode AC, Expiratory Pressure 5, Tidal Volume 500, Pressure Support 0, Phlebotomy Draw Site RIGHT BRACHIAL 06/11/162051: Anion Gap 21 H, Estimated GFR 18 L, BUN/Creatinine Ratio 17.3, Glucose 312 H, Calcium 9.2, Magnesium 2.8 H, Troponin I 0.04, Ncy-S-Mkjrplclvcp Pept 92428 H, CBC w Diff MAN DIFF ORDERED, RBC 3.22 L, MCV 88.5, MCH 27.5, RDW 15.4 H, MPV 9.5, Gran % 65.7, Lymphocytes % 30.1, Monocytes % 3.8, Eosinophils % 0.2, Basophils % 0.2, Absolute Granulocytes 12.3 H, Segmented Neutrophils 51, Band Neutrophils 1, Absolute Lymphocytes 5.6 H, Lymphocytes 44, Monocytes 4, Absolute Monocytes 0.7 H, Absolute Eosinophils 0, Absolute Basophils 0, Platelet Estimate ADEQUATE, Normocytic RBCs VERIFIED, Normochromic RBCs VERIFIED , PUBS MCHC 31.1 L Microbiology 06/12 0415 NASOPHARYN: Influenza Virus A & B Rapid Smear - COMP 06/11 2349 UPPER RESP: Surveillance Culture - COMP 06/11 2349 GI: Surveillance Culture - COMP Assessment/Plan Assessment/Plan Assessment: 1. Status post asystolic cardiac arrest 2. Elevated troponin 3. Acute respiratory failure, currently intubated 4. Congestive heart failure on chest x-ray with elevated proBNP 5. Anoxic brain injury status post cardiac arrest 6. Acute on chronic renal insufficiency 7. Persistent hypotension requiring multiple pressors 8. Metabolic acidosis 9. Hyperkalemia-resolved 10. Transaminitis 11. Leukocytosis Recommendations: -Continue supportive care as outlined -Await formal neurology input Continue telemetry? No
[2016-06-13 16:17] VITALS: BP 100/44
--- NOTE | 2016-06-13 20:32 | Cons- Neurology ---
General Information and HPI Consulting Request Date of Consult: 06/13/16 Requested By: Mar CASTREJON MD History of Present Illness: 81 YEAR OLD FEMALEHAD OUT OF HOSPITAL CARDIAC ARREST 06/11. PPATIENT HAD PROLONGED PERIOD OF ASYSTOLE COOED IN HOSPITAL, THEN REWARMED. NOT AWAKENED; REMAINS ON RESPIRATOR. ON PRESSORS. Allergies/Medications Allergies: Coded Allergies: No Known Allergies (06/12/16) Home Med List: Amlodipine Besylate 10 MG TABLET 10 MG PO DAILY HTN (Reported) Calcitriol 0.25 MCG CAPSULE 0.25 MCG PO DAILY BONE HEALTH (Reported) Carvedilol 25 MG TABLET 25 MG PO BID HTN (Reported) Colchicine 0.6 MG TABLET 0.6 MG PO DAILY GOUT (Reported) Duloxetine HCl 30 MG CAPSULE.DR 30 MG PO DAILY MENTAL HEALTH (Reported) Hydralazine HCl 50 MG TABLET 50 MG PO BID HTN (Reported) Irbesartan/Hydrochlorothiazide (Irbesartan-Hctz 300-12.5 MG Tb) 300 MG-12.5 MG TABLET 12.5 MG PO DAILY HTN (Reported) Lovastatin 40 MG TABLET 40 MG PO DAILY CHOLESTEROL (Reported) Pregabalin (Lyrica) 25 MG CAPSULE 25 MG PO DAILY DM (Reported) Current Medications: Current Medications Sig/Katy Start time Last Medication Dose Route Stop Time Status Admin Acetaminophen 1,000 MG Q12P PRN 06/11 2330 AC IV Ampicillin Sodium/ 1,500 MG Q6 06/11 2359 AC 06/13 Sulbactam Sodium IV 1147 Sodium Chloride 100 ML Artificial Tears 2 GTT 4 TIMES/DAY 06/12 1400 AC 06/13 OPH 1425 Dopamine HCl 400 MG Q5H 06/12 0730 AC 06/13 Dextrose/Water 500 ML IV 1424 Glycopyrrolate 200 MCG ONE ONE 06/13 1900 DC IV 06/13 1901 Heparin Sodium 5,000 UNIT Q8 06/11 2313 DC 06/13 (Porcine) SC 0647 Insulin Aspart 10 UNITS ONCE ONE 06/12 2114 DC 06/12 SC 06/12 211 2116 Insulin Human Regular 0 Q6 06/13 1200 DC SC Insulin Human Regular 0 Q6 06/13 0645 AC 06/13 SC 1147 Insulin Human Regular 100 UNIT Q24H 06/12 2215 DC 06/12 Sodium Chloride 100 ML IV 2248 Insulin Human Regular 0 Q6 06/12 0047 DC 06/12 VA 1921 Norepinephrine 8 MG Q12H 06/12 0300 AC 06/13 Sodium Chloride 250 ML IV 0825 Pantoprazole Sodium 40 MG DAILY 06/11 2330 AC 06/13 IV 1000 Phenylephrine HCl 40 MG Q24H 06/13 1815 DC Sodium Chloride 250 ML IV Sodium Chloride 250 ML BOLUS ONE 06/13 1730 DC IV 06/13 1829 Sodium Chloride 500 ML BOLUS ONE 06/13 0515 DC 06/13 IV 06/13 0614 0519 Sodium Chloride 1,000 ML Q20H 06/12 1000 AC 06/13 IV 0646 Vasopressin 40 UNITS .STK-MED ONE 06/12 222 DC IM 06/12 2228 Review of Systems Review of Systems: NOT OBTAINABLE Past History Travel History Traveled to [place] past 21 day No Medical History Blood Transfusion Hx: No Type of Reaction: Hives/Urticaria Cardiovascular: hypertension, hyperlipidemia Gastrointestinal: upper GI bleed Renal: chronic kidney disease Musculoskeletal: gout Endocrine: diabetes Surgical History Surgical History: unobtainable Psychosocial History Where Do You Live? Home Smoking Status: Never Smoked ETOH Use: denies use Illicit Drug Use: denies illicit drug use Functional Ability ADLs Independent: dressing, eating, toileting, bathing. Ambulation: independent IADLs Independent: shopping, housework, finances, food prep, telephone, transportation , medication admin. Exam & Diagnostic Data Vital Signs and I&O Vital Signs Date Time Temp Pulse Resp B/P Pulse O2 O2 Flow FiO2 Ox Delivery Rate 06/13 1921 65 06/13 1625 55 06/13 1617 98.4 81 16 100/44 91 Ventilator 55% 06/13 1600 91 Ventilator 55% 06/13 1435 50 06/13 1200 92 Ventilator 50% 06/13 1115 50 06/13 0814 81 95/46 /16 0805 60 /16 0800 94.3 82 16 95/46 95 Ventilator 60% 06/13 0800 95 Ventilator 60% 06/13 0540 60 06/13 0400 97 Ventilator 60% 06/13 0342 60 06/13 0305 93.0 75 16 98/42 03/16 0304 93.0 75 16 98/42 03/16 0050 60 03/16 0000 97 Ventilator 60% / 0000 91.5 75 16 118/60 97 Ventilator 60% 06/12 2347 91.5 75 16 118/60 06/12 2224 78 113/48 06/12 2212 60 Intake & Output 06/13 1600 06/13 0800 06/13 0000 Intake Total 2088 2268 1599 Output Total 150 260 350 Balance 1938 2008 1249 Intake, IV 2058 2268 1569 Intake, Oral 0 Intake, Other 30 Intake, Tube 30 Irrigant Number 0 0 Bowel Movements Output, 50 75 50 Gastric Drainage Output, Urine 100 185 300 Patient 161 lb Weight Assessment/Plan Assessment: INTUBATED NOT OVERRIDE RESPIRATOR NO DOLLS EYES NO CALORIC RESPONSE PUPILS LARGE AND UNREACTIVE NO RESPONSE TO VERBAL OR NOXIOUS STIMULI Recommendations: DISCUSSION WITH FAMILY RE: NO BRAINSTEM REFLEXES AND PATIENT NOT ABLE TO SURVIVE THE ANOXIC CARDIAC EVENT FAMILY HAS TWO NURSES WHO UNDERSTAND SITUATION THEY WILL DECIDE ON EXTUBATION Consult Acknowledgment - Thank you for your consult request.
--- NOTE | 2016-06-13 21:33 | Event Note ---
Event Note Event Note: patient was seen and examined by neurologist. NO DOLLS EYES, NO CALORIC RESPONSE PUPILS LARGE AND UNREACTIVE, NO RESPONSE TO VERBAL OR NOXIOUS STIMULI. Prognosis was found to be gaurded. Matter was discussed with family members by the attending neurologist. At 9 pm , 06/13/2016, family decided to withdrawl supportive care ( vassopressors and respiratory support). Per next of keen's request patient was terminally extubated at 9 pm and circulatory support was stopped. On 9:14 I was notified that patient is in asystole. Family members were in the room. Patient remained asystole without spontanous beathing effort. Ph/ex: No heart activity on monitor, no detectible pulse Heart: no heart sound Neuro exam: No spontenous breathing effort, was noted, not responssive (neither to pain or verbal stimulus). Pupils are dilated and nonrespossive to light. No corneal reflex. Based on findings, I Pronounced her . Date 06/13/2016 time of : 9:14pm Prounouncer: PGY 2 Nate
--- NOTE | 2016-06-14 08:55 | Discharge Summary ---
Visit Information Visit Dates Admission Date: 06/11/16 Discharge Date: 06/13/16 Hospital Course Course Attending Physician: Mar CASTREJON MD Primary Care Physician: ADI GERARDO MD Hospital Course: 81-year-old woman with PMH of insulin dependent diabetes mellitus, hyperlipidemia, hypertension, chronic kidney disease, gout, neuropathy, questionable congestive heart failure. Presented to the emergency department status post cardiac arrest at home on 06/11/16. Upon presentation, she was intubated, with low heart rate and blood pressure, thought to be due to cardiogenic shock, requiring pacer, and pressure support dopamine and levophed. CT also revealed anoxic brain injury with dilated pupils that are nonreactive. There were marked metabolic derangements, including but not limited to; hyperkalemia, hypermagnesiumia, hyperphospatemia, metabolic acidosis, lactic acidosis, TANNER on CKD, transaminitis, leukocytosis, anemia, positive troponin. After completing hypothermia protocol, pt's neurological functions were assessed by ICU attending, Dr. Castrejon, as well as a neurologist, separately. There was no evidence of brainstem activities. At 9PM on 06/13/16, family decided to terminally extubate her and she was pronounced at 914 PM on 06/13/16. Allergies: Coded Allergies: No Known Allergies (06/12/16) Disposition Summary Disposition Principal Diagnosis: Cardiogenic shock Additional Diagnosis: Anoxic brain injury Discharge Disposition: Discharge Instructions General Discharge Information Code Status: Full Code Patient's Diet: n/a Patient's Activity: n/a Follow-Up Instructions/Appts: n/a Copies To: ADI GERARDO MD, MD Review Statement Documenting Attending: Mar CASTREJON MD
== END 2016-06-13 21:09 | disposition expired | DRG 208 ==
LOC: ENRESERVDT → ENRESERVTM → ERH 20:34 → EDBD 20:42 → ERH 20:42 → ERHI 21:38 → CRI 21:38
PROVIDERS: Emergency Medicine; Internal Medicine Hematology & Oncology; Radiology Diagnostic Radiology; ADMIT Internal Medicine
PROC: 5A1945Z Respiratory Ventilation, 24-96 Consecutive Hours (ICD-10-PCS; principal; 2016-06-11)
PROC: 0BH17EZ Insertion of Endotracheal Airway into Trachea, Via Natural or Artificial Opening (ICD-10-PCS; principal; 2016-06-11)
PROC: 5A12012 Performance of Cardiac Output, Single, Manual (ICD-10-PCS; principal; 2016-06-11)
DX: J69.0 Pneumonitis due to inhalation of food and vomit (principal); J96.01 Acute respiratory failure with hypoxia; K72.00 Acute and subacute hepatic failure without coma; N17.9 Acute kidney failure, unspecified; E87.2 Acidosis; G93.1 Anoxic brain damage, not elsewhere classified; R57.0 Cardiogenic shock; E87.5 Hyperkalemia; E11.9 Type 2 diabetes mellitus without complications; Z79.4 Long term (current) use of insulin; I10 Essential (primary) hypertension
CPT/HCPCS: 87184; CCU; ERO; 36415; 81001; 82436; 87040; 87045; 87070; 87086; 87147; 87804; 87804-59; 93005; 93010; 93306; 94799; 96361; 96365; 96375; 99291; J0610; J1265; J1644; J1815; J7040; J7042; J7060